=== PATIENT | male | born 1945 | race Caucasian/White ===

== ENCOUNTER 2021-06-12 14:05 | Inpatient (IN) | payer MEDICARE, OTHER ==
[~2021-06-12] VITALS: Ht 175 cm; Wt 64.4 kg
[~2021-06-12 14:05] MED LIST: ACET325T38 PO; ASPI325T32 PO; ATOR80TA2 PO; GLIP10TA13 PO; INSU100V6 SQ; LISI10TA2 PO; METF-380 PO; UBID10CA8 PO
[2021-06-12 14:42] LABS: BASOPHILS % (AUTO) 0 % (0-10); EOSINOPHILS % (AUTO) 0 % (0-10); HEMATOCRIT 41 % (40-54); HEMOGLOBIN 13.9 g/dL (13.3-17.7); LYMPHOCYTES # (AUTO) 0.8 10^3/uL (1.0-4.0); LYMPHOCYTES % (AUTO) 22 % (12-44); MEAN CORPUSCULAR HEMOGLOBIN 31 pg (25-34); MEAN CORPUSCULAR HGB CONC 34 g/dL (32-36); MEAN CORPUSCULAR VOLUME 91 fL (80-99); MEAN PLATELET VOLUME 9.7 fL (9.0-12.2); MONOCYTES # (AUTO) 0.3 10^3/uL (0.0-1.0); MONOCYTES % (AUTO) 7 % (0-12); NEUTROPHILS # (AUTO) 2.6 10^3/uL (1.8-7.8); NEUTROPHILS % (AUTO) 71 % (42-75); PLATELET COUNT 183 10^3/uL (130-400); WHITE BLOOD COUNT 3.6 10^3/uL (4.3-11.0)
[2021-06-12] MEDS ORDERED: ACETAMINOPHEN 500 MG TAB (TYLENOL) PO PRN (14:45)
[2021-06-12] MEDS ORDERED: PIPERACILLIN SODIUM/TAZOBACTAM 4.5 GM in NS (IVPB) 100 ML IV ONE (14:45)
[2021-06-12 14:47] LABS: ALBUMIN 3.4 GM/DL (3.2-4.5); POTASSIUM 4.3 MMOL/L (3.6-5.0)
[2021-06-12 14:48] LABS: CALCIUM 8.8 MG/DL (8.5-10.1); INR 0.9 (0.8-1.4); PROTHROMBIN TIME PATIENT 12.3 SEC (12.2-14.7)
[2021-06-12 14:49] LABS: TOTAL PROTEIN 7.5 GM/DL (6.4-8.2)
[2021-06-12 14:51] LABS: BILIRUBIN,TOTAL 0.6 MG/DL (0.1-1.0)
[2021-06-12 14:53] LABS: CREATININE SERUM 1.78 MG/DL (0.60-1.30)
--- NOTE | 2021-06-12 14:59 | Diagnostic Imaging Report ---
INDICATION: Sepsis, fever. COMPARISON: None available. TECHNIQUE: Single view chest dated 06/12/2021. FINDINGS: The cardiac silhouette is within normal limits in size. No significant pulmonary vascular congestion. The lungs are clear of focal pulmonary opacity. Calcifications within the aortic arch. No pleural effusion. No pneumothorax. No acute osseous abnormality. IMPRESSION: No acute cardiopulmonary abnormality. Dictated by: Dictated on workstation # [id number]
--- NOTE | 2021-06-12 15:07 | ED Cough/URI ---
General Chief Complaint: Fever-Adult/Adol Stated Complaint: WEAKNESS Nursing Triage Note: PT ARRIVED PER [facility], PT IS LETHARGIC, WEARING O2@2L NORMAL. HAS TEMP 101.7AX. FAMILY STATES WEAK NO APPETITE. WAS SEEN IN [facility] LAST WEEK AND GIVEN MACROBID FOR UTI. Source: patient Exam Limitations: no limitations (ERIBERTO LALA APRN) History of Present Illness Date Seen by Provider: Jun 12, 2021 Time Seen by Provider: 15:06 Initial Comments ER by daughter with reports of general weakness for 1 week was seen at [facility] 2 days ago and given Macrobid and discharged home. He is terribly weak. He did have a fever on arrival here. They state he would be full CODE STATUS. Timing/Duration: constant Severity/Quality: moderate Associated Symptoms: denies symptoms (ERIBERTO LALA APRN) Allergies and Home Medications Allergies Uncoded Allergies: NKMA (Adverse Reaction, Intermediate, 12/11/14) Home Medications Acetaminophen 325 Mg Tablet, 650 MG PO Q4H PRN for HEADACHE, (Reported) Aspirin 325 Mg Tablet.dr, 325 MG PO DAILY, (Reported) Atorvastatin Calcium 80 Mg Tablet, 80 MG PO DAILY, (Reported) Glipizide 10 Mg Tablet, 1 EACH PO BID, (Reported) Insulin Glargine,Hum.rec.anlog 100 Unit/1 Ml Vial, 12 UNIT SQ DAILY, (Reported) Lisinopril 10 Mg Tablet, 10 MG PO DAILY, (Reported) Metformin Hcl 1,000 Mg Tablet, 1 EACH PO BID, (Reported) Ubidecarenone 10 Mg Capsule, 10 MG PO DAILY, (Reported) Patient Home Medication List Home Medication List Reviewed: Yes (ERIBERTO LALA APRN) Review of Systems Review of Systems Constitutional: see HPI EENTM: see HPI Respiratory: no symptoms reported Cardiovascular: no symptoms reported Genitourinary: no symptoms reported Musculoskeletal: no symptoms reported Skin: no symptoms reported Psychiatric/Neurological: No Symptoms Reported Hematologic/Lymphatic: No Symptoms Reported Immunological/Allergic: no symptoms reported (ERIBERTO LALA APRN) Past Xagyqtg-Tcdwkc-Idkkln Hx Patient Social History Tobacco Use?: No Tobacco type used: Cigarettes Smoking Status: Former Smoker Substance use?: No Alcohol Use?: No Pt feels they are or have been: No (ERIBERTO LALA APRN) Immunizations Up To Date Tetanus Booster (TDap): More than 5yrs PED Vaccines UTD: No (ERIBERTO LALA APRN) Past Medical History Surgery/Hospitalization HX: WAS SEEN IN [facility] ED PAST WEEK Orthopedic, Tonsillectomy Reproductive Disorders: No Sexually Transmitted Disease: No HIV/AIDS: No Diabetes, Insulin dep Loss of Vision: Bilateral Hearing Impairment: Hard of Hearing Adverse Reaction/Blood Tranf: No (ERIBERTO LALA APRN) Family Medical History Patient reports no known family medical history. Physical Exam Vital Signs - First Documented 06/12/21 14:05 Temp 38.8 Pulse 122 Resp 20 B/P (MAP) 173/92 (119) Pulse Ox 93 O2 Delivery Nasal Cannula O2 Flow Rate 2.00 (JOY SWAN MD) Capillary Refill : Less Than 3 Seconds (ERIBERTO LALA APRN) Height: 5'8.00" Weight: 192lbs. oz. 87.476777rt; 20.00 BMI Method: General Appearance: WD/WN, no apparent distress, thin Eyes: Bilateral Eye Normal Inspection, Bilateral Eye PERRL, Bilateral Eye EOMI Neck: non-tender, full range of motion Respiratory: normal breath sounds, no respiratory distress, no accessory muscle use Gastrointestinal: normal bowel sounds, non tender Extremities: normal range of motion, non-tender Neurologic/Psychiatric: alert, normal mood/affect, oriented x 3 Skin: normal color, warm/dry (ERIBERTO LALA APRN) Focused Exam Lactate Level 06/12/21 14:10: Lactic Acid Level 1.54 (JOY SWAN MD) Lactic Acid Level Laboratory Tests Test 06/12/21 14:10 Lactic Acid Level 1.54 MMOL/L (0.50-2.00) (JOY SWAN MD) Progress/Results/Core Measures Suspected Sepsis SIRS Temperature: Pulse: 122 Respiratory Rate: 20 Laboratory Tests 06/12/21 14:10: White Blood Count 3.6L Blood Pressure 173 /92 Mean: 119 06/12/21 14:10: Lactic Acid Level 1.54 Laboratory Tests 06/12/21 14:10: Creatinine 1.78H, INR Comment 0.9, Platelet Count 183, Total Bilirubin 0.6 (ERIBERTO LALA APRN) Results/Orders Lab Results Laboratory Tests Test 06/12/21 14:10 06/12/21 14:28 06/12/21 15:09 Range/Units White Blood Count 3.6 L 4.3-11.0 10^3/uL Red Blood Count 4.46 4.30-5.52 10^6/uL Hemoglobin 13.9 13.3-17.7 g/dL Hematocrit 41 40-54 % Mean Corpuscular Volume 91 80-99 fL Mean Corpuscular Hemoglobin 31 25-34 pg Mean Corpuscular Hemoglobin Concent 34 32-36 g/dL Red Cell Distribution Width 12.7 10.0-14.5 % Platelet Count 183 130-400 10^3/uL Mean Platelet Volume 9.7 9.0-12.2 fL Immature Granulocyte % (Auto) 0 % Neutrophils (%) (Auto) 71 42-75 % Lymphocytes (%) (Auto) 22 12-44 % Monocytes (%) (Auto) 7 0-12 % Eosinophils (%) (Auto) 0 0-10 % Basophils (%) (Auto) 0 0-10 % Neutrophils # (Auto) 2.6 1.8-7.8 10^3/uL Lymphocytes # (Auto) 0.8 L 1.0-4.0 10^3/uL Monocytes # (Auto) 0.3 0.0-1.0 10^3/uL Eosinophils # (Auto) 0.0 0.0-0.3 10^3/uL Basophils # (Auto) 0.0 0.0-0.1 10^3/uL Immature Granulocyte # (Auto) 0.0 0.0-0.1 10^3/uL Prothrombin Time 12.3 12.2-14.7 SEC INR Comment 0.9 0.8-1.4 Activated Partial Thromboplast Time 32 24-35 SEC Sodium Level 132 L 135-145 MMOL/L Potassium Level 4.3 3.6-5.0 MMOL/L Chloride Level 99 98-107 MMOL/L Carbon Dioxide Level 22 21-32 MMOL/L Anion Gap 11 5-14 MMOL/L Blood Urea Nitrogen 28 H 7-18 MG/DL Creatinine 1.78 H 0.60-1.30 MG/DL Estimat Glomerular Filtration Rate 37 BUN/Creatinine Ratio 16 Glucose Level 396 H 70-105 MG/DL Lactic Acid Level 1.54 0.50-2.00 MMOL/L Calcium Level 8.8 8.5-10.1 MG/DL Corrected Calcium 9.3 8.5-10.1 MG/DL Total Bilirubin 0.6 0.1-1.0 MG/DL Aspartate Amino Transf (AST/SGOT) 37 H 5-34 U/L Alanine Aminotransferase (ALT/SGPT) 29 0-55 U/L Alkaline Phosphatase 78 40-136 U/L Total Protein 7.5 6.4-8.2 GM/DL Albumin 3.4 3.2-4.5 GM/DL Urine Color YELLOW Urine Clarity SL CLOUDY Urine pH 5.5 5-9 Urine Specific [place] 1.025 H 1.016-1.022 Urine Protein 2+ H NEGATIVE Urine Glucose (UA) 3+ H NEGATIVE Urine Ketones TRACE H NEGATIVE Urine Nitrite NEGATIVE NEGATIVE Urine Bilirubin NEGATIVE NEGATIVE Urine Urobilinogen 0.2 < = 1.0 MG/DL Urine Leukocyte Esterase NEGATIVE NEGATIVE Urine RBC (Auto) 1+ H NEGATIVE Urine RBC RARE /HPF Urine WBC 10-25 H /HPF Urine Squamous Epithelial Cells 0-2 /HPF Urine Crystals NONE /LPF Urine Bacteria LARGE H /HPF Urine Casts NONE /LPF Urine Mucus SMALL H /LPF Urine Culture Indicated CULTURE PENDING SARS-CoV-2 RNA (RT-PCR) Detected H Not Detecte (JOY SWAN MD) Medications Given in ED Current Medications Medications Dose Ordered Sig/Shonda Route Start Time Stop Time Status Last Admin Dose Admin Acetaminophen 1,000 mg ONCE PRN PO 06/12/21 14:45 06/12/21 15:24 DC 06/12/21 15:23 1,000 MG Piperacillin Sod/ Tazobactam Sod 4.5 gm/Sodium Chloride 100 ml @ 200 mls/hr ONCE ONCE IV 06/12/21 14:45 06/12/21 15:14 DC 06/12/21 15:24 200 MLS/HR (JOY SWAN MD) Vital Signs/I&O 06/12/21 06/12/21 14:05 14:05 Temp 38.8 Pulse 122 Resp 20 B/P (MAP) 173/92 (119) Pulse Ox 93 93 O2 Delivery Nasal Cannula Nasal Cannula O2 Flow Rate 2.00 2.00 (JOY SWAN MD) Vital Signs/I&O Capillary Refill : Less Than 3 Seconds (ERIBERTO LALA APRN) Blood Pressure Mean: 119 Departure Impression Primary Impression: COVID-19 Disposition: 09 ADMITTED INPATIENT Condition: Stable Admissions Decision to Admit Reason: Admit from ER (General) Decision to Admit/Date: Jun 12, 2021 Time/Decision to Admit Time: 16:12 (ERIBERTO LALA APRN) ATTENDING PHYSICIAN NOTE: I was physically present as attending physician in the emergency department during the care of this patient, but I was not directly involved in the decision making or delivery of care for this patient. (JOY SWAN MD) EIRBERTO LALA APRN Jun 12, 2021 15:07 JOY SWAN MD Jun 12, 2021 19:27
[2021-06-12 15:30] LABS: BILIRUBIN,URINE NEGATIVE (NEGATIVE); COLOR,URINE YELLOW; GLUCOSE, URINE (UA) 3+ (NEGATIVE); KETONES,URINE TRACE (NEGATIVE); LEUKOCYTE ESTERASE ,URINE NEGATIVE (NEGATIVE); NITRITE,URINE NEGATIVE (NEGATIVE); PH,URINE 5.5 (5-9); PROTEIN,URINE 2+ (NEGATIVE)
[2021-06-12 15:40] LABS: CLARITY,URINE SL CLOUDY
[2021-06-12 15:41] LABS: BACTERIA,URINE LARGE /HPF; RBC,URINE RARE /HPF; SQUAMOUS EPITHELIAL CELL,UR 0-2 /HPF
--- NOTE | 2021-06-12 16:22 | History & Physical-Hospitalist ---
History of Present Illness HPI/Chief Complaint Pt is a 76yoCM with a IDDMII, HLD who presented to the ER due to fever and weakness. He is unable to give me any history. He is awake but mostly nods his head and I am unsure if this is appropriate. All history is obtained from the records. Daughter reported tot he ER that he was weak for the past week and seen in the [facility] 2 days ago and diagnosed with a UTI and DCed home with macrobid. He continued to fever and was brought here for reevaluation where he was found to be hypoxic and COVID+. He is unvaccinated per his daughters report. He is being admitted for further care. Source: patient Date Seen 06/12/21 Time Seen by a Provider: 16:17 Attending Physician Chichi Palmer PCP Referring Physician Date of Admission Home Medications & Allergies Home Medications Reviewed patient Home Medication Reconciliation performed by pharmacy medication reconciliations centrifugal chiller technician and/or nursing. Patients Allergies have been reviewed. Allergies Allergies Uncoded Allergies NKMA ( Adverse Reaction, Intermediate, 12/11/14) Past Ynmsnzr-Agwvof-Osdszm Hx Patient Social History Employed/Student: retired Tobacco Use?: No Tobacco type used: Cigarettes Smoking Status: Former Smoker Substance use?: No Alcohol Use?: No Pt feels they are or have been: No Immunizations Up To Date Date of Influenza Vaccine: Dec 10, 2014 Hepatitis B: No PED Vaccines UTD: No Date of Pneumonia Vaccine: Dec 10, 2014 Current Status Advance Directives: No Communicates: Verbally Primary Language: [place] Preferred Spoken Language: [place] Is interpretation needed?: No Implanted or Applied Medical D: None Past Medical History Surgeries: Orthopedic, Tonsillectomy High Cholesterol Sexually Transmitted Disease: No HIV/AIDS: No Diabetes, Insulin dep Loss of Vision: Bilateral Hearing Impairment: Hard of Hearing Adverse Reaction/Blood Tranf: No Family Medical History Reviewed Nursing Family Hx (unable to give history) Patient reports no known family medical history. Review of Systems ROS-Unable to Obtain: limited by patient clinical condition Constitutional: fever, malaise, weakness Genitourinary: other (recent UTI) Physical Exam Physical Exam Vital Signs Vital Signs - First Documented 06/12/21 06/13/21 14:05 03:47 Temp 38.8 Pulse 122 Resp 20 B/P (MAP) 173/92 (119) Pulse Ox 93 O2 Delivery Nasal Cannula O2 Flow Rate 2.00 FiO2 32 Capillary Refill : Less Than 3 Seconds Height, Weight, BMI Height: 5'8.00" Weight: 192lbs. oz. 87.845118qg; 20.00 BMI Method: General Appearance: Chronically ill, Thin, Other (ill appearing) HEENT: PERRL/EOMI, Moist Mucous Membranes; No Scleral Icterus (L), No Scleral Icterus (R) Neck: Normal Inspection, Supple Respiratory: No Accessory Muscle Use, No Respiratory Distress; No Crackles; Decreased Breath Sounds Cardiovascular: Regular Rate, Rhythm, No Murmur Gastrointestinal: Normal Bowel Sounds, Non Tender, Soft Genital/Rectal: Other (claderon in place) Neurologic/Psychiatric: Alert, Disoriented Results Results/Procedures Labs Laboratory Tests 06/12/21 14:10 06/13/21 04:00 06/14/21 03:44 Patient resulted labs reviewed. Imaging: Reviewed Imaging Report Imaging [facility] [place], [place] NAME: DAMIEN BRADY [facility] REC#: [id number] PT STATUS: REG ER : 1945 PHYSICIAN: ERIBERTO LALA APRN ADMIT DATE: 06/12/21/ER Signed Date of Exam:06/12/21 CHEST 1 VIEW, AP/PA ONLY INDICATION: Sepsis, fever. COMPARISON: None available. TECHNIQUE: Single view chest dated 06/12/2021. FINDINGS: The cardiac silhouette is within normal limits in size. No significant pulmonary vascular congestion. The lungs are clear of focal pulmonary opacity. Calcifications within the aortic arch. No pleural effusion. No pneumothorax. No acute osseous abnormality. IMPRESSION: No acute cardiopulmonary abnormality. Dictated by: Dictated on workstation # [id number] Dict: 06/12/21 1454 Trans: 06/12/21 1606 [id number] Interpreted by: UMA VELEZ MD Electronically signed by: UMA VELEZ MD 06/12/21 1606 Assessment/Plan Admission Diagnosis Acute hypoxic respiratory failure due to COVID19 Admission Status: Inpatient Order (span 2 midnights) Reason for Inpatient Admission: see below Assessment and Plan Acute hypoxic respiratory failure due to COVID19 Decadron Remdesivir Titrate oxygen to keep sats >90% Roughly 1 week of symptoms per family MAT protocol IS UTI Continue on IV abx Await c/s IDDMII Continue home meds when med rec done DVT ppx: lovenox Diagnosis/Problems Diagnosis/Problems (1) Acute respiratory failure (2) HLD (hyperlipidemia) (3) Insulin dependent diabetes mellitus (4) COVID-19 Status: Acute CHICHI PALMER MD Jun 12, 2021 16:22
[2021-06-12] MEDS ORDERED: ONDANSETRON 4 MG/2 ML (SDV) Z0FRAN IVP PRN ×2 (17:00)
[2021-06-12] MEDS ORDERED: ACETAMINOPHEN 325 MG TABLET PO PRN (17:00)
[2021-06-12] MEDS ORDERED: REMDESIVIR 200 MG/NS 250 ML IVPB IV NR ×2 (17:00)
[2021-06-12] MEDS ORDERED: ACETAMINOPHEN 325 MG SUPP (TYLENOL) PR PRN (17:00)
[2021-06-12] MEDS ORDERED: inSUlin ASPART (NovoLOG) 1 UNIT/0.01 ML (CHARGE PER UNIT) SC SCH (17:15)
[2021-06-12] MEDS: ENOXAPARIN 40 MG/0.4 ML (LOVENOX) SYR SC SCH (18:03)
[2021-06-12 18:38] LABS: ABG BASE EXCESS -3.5 MMOL/L (-2.5-2.5); ABG OXYGEN SATURATION 94 % (94-100); ABG PCO2 36 MMHG (35-45); ABG PH 7.38 (7.37-7.43); ABG PO2 62 MMHG (79-93); ABG TCO2 22.1 MMOL/L (21.0-31.0); ALLENS TEST YES-POS; INSPIRED O2 2L; PATIENT TEMP 36.4; VENTILATOR NO
[2021-06-12 19:00] VITALS: BP 131/75
[2021-06-12 20:00] VITALS: BP 127/71
[2021-06-12] MEDS: LACTATED RINGERS 1,000 ML IV SCH (20:12)
[2021-06-12 20:15] VITALS: BP 127/71
[2021-06-12] MEDS: inSUlin ASPART (NovoLOG) 1 UNIT/0.01 ML (CHARGE PER UNIT) SC SCH (20:26)
[2021-06-12 21:00] VITALS: BP 138/80
--- NOTE | 2021-06-12 21:50 | Tele-ICU Progress Note ---
Progress Note 76M w/IDDM, HLD, unvaccinated admitted with COVID, hypoxia. Initiated on remdesivir, decadron, empiric abx. - COVID: continue current management. Currently on 2L NC, monitor for decomponsation. - hyperglycemia: insulin sliding scale, has slowly improved from 400 to 300 throughout the day. Will continue to monitor, if not <200 by AM will increase. - ASHVIN vs CKD: presumed ASHVIN secondary to infection. Baseline unknown, only prior draw was 2014 with creatinine 0.8, now 1.78, Will monitor. Avoid nephrotoxins, hypotension. Focused Exam Lactate Level 06/12/21 14:10: Lactic Acid Level 1.54 Height, Weight, BMI Height: 5'8.00" Weight: 192lbs. oz. 87.663647ng; 20.00 BMI Method: CHRIS MCWILLIAMS MD Jun 12, 2021 21:50
[2021-06-12 22:00] VITALS: BP 129/76
[2021-06-12 23:00] VITALS: BP 128/72
[2021-06-13] VITALS (17 sets, daily range): BP systolic 120–150; BP diastolic 60–87
[2021-06-13] MEDS: LACTATED RINGERS 1,000 ML IV SCH ×3 (03:29→15:53)
[2021-06-13] MEDS ORDERED: RT-ALBUTEROL HFA 8.5 GM INHALER IH PRN (04:00)
[2021-06-13 04:27] LABS: BASOPHILS % (AUTO) 0 % (0-10); EOSINOPHILS % (AUTO) 0 % (0-10); HEMATOCRIT 38 % (40-54); LYMPHOCYTES # (AUTO) 1.2 10^3/uL (1.0-4.0); LYMPHOCYTES % (AUTO) 19 % (12-44); MEAN CORPUSCULAR HEMOGLOBIN 31 pg (25-34); MEAN CORPUSCULAR HGB CONC 35 g/dL (32-36); MEAN CORPUSCULAR VOLUME 90 fL (80-99); MEAN PLATELET VOLUME 9.9 fL (9.0-12.2); MONOCYTES # (AUTO) 0.3 10^3/uL (0.0-1.0); MONOCYTES % (AUTO) 5 % (0-12); NEUTROPHILS # (AUTO) 4.7 10^3/uL (1.8-7.8); NEUTROPHILS % (AUTO) 76 % (42-75); PLATELET COUNT 181 10^3/uL (130-400); WHITE BLOOD COUNT 6.2 10^3/uL (4.3-11.0)
[2021-06-13 04:40] LABS: POTASSIUM 3.9 MMOL/L (3.6-5.0)
[2021-06-13 04:41] LABS: CALCIUM 8.7 MG/DL (8.5-10.1)
[2021-06-13 04:45] LABS: PHOSPHORUS 2.2 MG/DL (2.3-4.7)
[2021-06-13 04:46] LABS: CREATININE SERUM 1.91 MG/DL (0.60-1.30)
[2021-06-13 04:47] LABS: MAGNESIUM 1.7 MG/DL (1.6-2.4)
[2021-06-13] MEDS: inSUlin ASPART (NovoLOG) 1 UNIT/0.01 ML (CHARGE PER UNIT) SC SCH ×4 (05:10→21:16)
[2021-06-13] MEDS ORDERED: POTASSIUM CL 10MEQ/50ML IVPB 50 ML IV SCH (06:00)
[2021-06-13] MEDS ORDERED: MAGNESIUM 1 GM/100 ML IVPB 100 ML IV SCH (06:00)
[2021-06-13] MEDS ORDERED: KCL 20 MEQ TAB (K-DUR) PO SCH (06:00)
[2021-06-13] MEDS: dexAMETHasone 6 MG TAB (DECADRON) PO SCH (08:15)
--- NOTE | 2021-06-13 09:04 | Tele-ICU Progress Note ---
Subjective Date Seen by a Provider: Jun 13, 2021 Time Seen by a Provider: 09:04 Sepsis Event Evaluation Height, Weight, BMI Height: 5'8.00" Weight: 192lbs. oz. 87.486375lr; 20.00 BMI Method: Focused Exam Lactate Level 06/12/21 14:10: Lactic Acid Level 1.54 Exam Exam Patient acknowledged, consented, and participated in this virtual visit which was conducted using real time audio/video Vital Signs Date Time Temp Pulse Resp B/P (MAP) Pulse Ox O2 Delivery O2 Flow Rate FiO2 06/13/21 08:15 94 Nasal Cannula 2.00 06/13/21 08:00 105 27 142/73 (94) 94 Nasal Cannula 2.00 06/13/21 07:57 37.0 06/13/21 07:00 111 38 150/87 (113) 95 Nasal Cannula 2.00 06/13/21 07:00 108 06/13/21 06:00 111 22 139/83 (101) 93 Nasal Cannula 2.00 06/13/21 05:00 112 30 135/82 (99) 95 Nasal Cannula 2.00 06/13/21 04:00 113 22 138/83 (101) 95 Nasal Cannula 2.00 06/13/21 04:00 95 Nasal Cannula 2.00 06/13/21 03:47 37.1 109 95 32 06/13/21 03:30 37.1 06/13/21 03:00 112 20 135/70 (91) 95 Nasal Cannula 2.00 06/13/21 02:00 112 34 132/69 (90) 95 Nasal Cannula 2.00 06/13/21 01:00 109 33 132/68 (89) 95 Nasal Cannula 2.00 06/13/21 01:00 109 06/13/21 00:07 37.4 109 22 121/74 (90) 95 Nasal Cannula 2.00 06/13/21 00:00 95 Nasal Cannula 2.00 06/13/21 00:00 110 32 126/70 (88) 95 Nasal Cannula 2.00 06/12/21 23:00 111 25 128/72 (90) 94 Nasal Cannula 2.00 06/12/21 22:00 112 25 129/76 (93) 95 Nasal Cannula 2.00 06/12/21 21:00 111 27 138/80 (99) 95 Nasal Cannula 2.00 06/12/21 21:00 95 Nasal Cannula 2.00 06/12/21 20:25 37.5 06/12/21 20:19 105 06/12/21 20:15 105 26 127/71 (89) 95 Nasal Cannula 2.00 06/12/21 20:00 105 26 127/71 (89) 95 Nasal Cannula 2.00 06/12/21 19:00 107 26 131/75 (93) 92 Nasal Cannula 2.00 06/12/21 18:30 Nasal Cannula 6.00 06/12/21 16:48 112 06/12/21 16:40 92 Nasal Cannula 2.00 06/12/21 16:40 37.2 Nasal Cannula 2.00 06/12/21 16:13 117 20 154/82 (119) 95 Nasal Cannula 2.00 06/12/21 14:05 38.8 122 20 173/92 (119) 93 Nasal Cannula 2.00 06/12/21 14:05 93 Nasal Cannula 2.00 I & O 06/13/21 06:59 Intake Total 1250 ml Output Total 450 ml Balance 800 ml Height & Weight Height: 5'8.00" Weight: 192lbs. oz. 87.893493ie; 20.00 BMI Method: General Appearance: Chronically ill, Thin, Other (ill appearing) HEENT: PERRL/EOMI, Moist Mucous Membranes; No Scleral Icterus (L), No Scleral Icterus (R) Neck: Normal Inspection, Supple Respiratory: No Accessory Muscle Use, No Respiratory Distress; No Crackles; Decreased Breath Sounds Cardiovascular: Regular Rate, Rhythm, No Murmur Capillary Refill: Less Than 3 Seconds Gastrointestinal: normal bowel sounds, non tender Neurologic/Psychiatric: Alert, Disoriented Results Lab Laboratory Tests 06/12/21 14:10 06/13/21 04:00 Assessment/Plan Assessment/Plan (Tele-ICU Physician , Progress Note ) Available chart/ vitals / labs / Images reviewed Video assessment done using teleICU camera, rest of exam as per RN Discussed with RN , EXAM PER RN Events overnight : Afebrile I/O = pos Drips: na 100 Pressors: , hemodynamically stable Consultants: Hospital course: A/P COVID PNA - 2 L o2 , steroids , remdesivir UTI - ABC , await cx ASHVIN - worsenign despite hydration - increase IVF - US renal Lines : peripf (Central Line Necessity Reviewed) Diaz: + VTE Prophylaxis: lovenox Stress Ulcer Prophylaxis: Po Plans in collaboration with bedside consultants and IM MDs. Discussed with RN to reach out if any questions or concerns A total of 20 minutes of critical care time was devoted to this patient today, required to treat and/or prevent further deterioration of critical care condition ( as above) . IVAN RODRIGUEZ MD Jun 13, 2021 09:04
[2021-06-13] MEDS ORDERED: PIPERACILLIN/TAZO 4.5 GM/NS 100 ML IV ONE ×2 (09:30)
--- NOTE | 2021-06-13 10:29 | Progress Note - Hospitalist ---
Subjective HPI/CC On Admission Date Seen by Provider: Jun 13, 2021 Time Seen by Provider: 10:25 Pt is a 76yoCM with a IDDMII, HLD who presented to the ER due to fever and weakness. He is unable to give me any history. He is awake but mostly nods his head and I am unsure if this is appropriate. All history is obtained from the records. Daughter reported tot he ER that he was weak for the past week and seen in the [facility] 2 days ago and diagnosed with a UTI and DCed home with macrobid. He continued to fever and was brought here for reevaluation where he was found to be hypoxic and COVID+. He is unvaccinated per his daughters report. He is being admitted for further care. Subjective/Events-last exam Pt more alert today. No complaints but somewaht drowsy. Unsure of his baseline. I attempted to call family to clarify this at both numbers in the chart and both are disconnected. Focused Exam Lactate Level 06/12/21 14:10: Lactic Acid Level 1.54 Objective Exam Vital Signs Vital Signs Date Time Temp Pulse Resp B/P (MAP) Pulse Ox O2 Delivery O2 Flow Rate FiO2 06/14/21 11:40 36.0 88 20 121/63 (82) 93 Nasal Cannula 4.00 06/13/21 03:47 32 Capillary Refill : Less Than 3 Seconds General Appearance: No Apparent Distress, Chronically ill, Thin Respiratory: Decreased Breath Sounds; No Wheezing; Other (on 2lpm) Cardiovascular: Regular Rate, Rhythm, No Murmur Gastrointestinal: Normal Bowel Sounds, Non Tender, Soft Extremity: No Calf Tenderness, No Pedal Edema Neurologic/Psychiatric: Alert, Other (nods head but otherwise unable to participate much in conversation) Results/Procedures Lab Laboratory Tests 06/14/21 03:44 Patient resulted labs reviewed. Imaging: Reviewed Imaging Report Assessment/Plan Assessment and Plan Assess & Plan/Chief Complaint Acute hypoxic respiratory failure due to COVID19 Decadron Remdesivir was planned but creatinine clearance is less than 30 so not appropriate Titrate oxygen to keep sats >90% Roughly 1 week of symptoms per family report to ER MAT protocol IS UTI Continue on IV abx Await c/s IDDMII Continue home meds when med rec done DVT ppx: lovenox Diagnosis/Problems Diagnosis/Problems (1) Acute respiratory failure (2) HLD (hyperlipidemia) (3) Insulin dependent diabetes mellitus (4) COVID-19 Status: Acute CHICHI AGUILA MD Jun 13, 2021 10:29
--- NOTE | 2021-06-13 12:07 | Diagnostic Imaging Report ---
PROCEDURE: US Renal/Bladder. TECHNIQUE: Multiple real-time grayscale images were obtained over the kidneys in various projections bilaterally. INDICATION: Acute kidney injury. Evaluate for hydronephrosis. COMPARISON: None. FINDINGS: Right: The right kidney measures 11.2 cm in length. Renal cortical thickness and echogenicity are within normal limits. There is no evidence of calculi, solid focal mass or hydronephrosis. No perinephric fluid collections are identified. Left: The left kidney measures 9.9 cm in length. Renal cortical thickness and echogenicity are within normal limits. There is no evidence of calculi, solid focal mass or hydronephrosis. No perinephric fluid collections are identified. There is no abdominal ascites. Views of the pelvis demonstrate a decompressed urinary bladder with Diaz in place. IMPRESSION: 1. No acute renal abnormalities identified. No evidence of hydronephrosis. Dictated by: Dictated on workstation # [id number]
--- NOTE | 2021-06-13 14:12 | Occupational Therapy Eval ---
OT Evaluation-General/PLF Medical Diagnosis Admission Date Jun 12, 2021 at 16:10 Medical Diagnosis: COVID+ Onset Date: Jun 13, 2021 Therapy Diagnosis Therapy Diagnosis: weakness, decreased ADL status Height/Weight Height (Feet): 5 Height (Inches): 8.00 Weight (Pounds): 192 Precautions Precautions/Isolations: Airborne Isolation, Fall Prevention, Standard Precautions Referral Physician: Estela Referral Reason: Evaluation/Treatment Medical History Pertinent Medical History: DM Current History ED due to weakness/fever Social History Home: Single Level Current Living Status: Children (daughter) Entry Into Home: Stairs With Railing Steps Into Home: 3 ADL-Prior Level of Function SCALE: Activities may be completed with or without assistive devices. 1-Qdolazvcfv-gvdsein completes the activity by him/herself with no assistance from a helper. 5-Set-up or Clean-up Assistance-helper sets up or cleans up; patient completes activity. [place] assists only prior to or following the activity. 4-Supervision or Touching Assistance-helper provides verbal cues and/or touching/steadying and/or contact guard assistance as patient completes activity. Assistance may be provided throughout the activity or intermittently. 3-Partial/Moderate Assistance-helper does LESS THAN HALF the effort. [place] lifts, holds or supports trunk or limbs, but provides less than half the effort. 2-Substantial/Maximal Assistance-helper does MORE THAN HALF the effort. [place] lifts or holds trunk or limbs and provides more than half the effort. 6-Skennbzqr-tjaiij does ALL the effort. Patient does none of the effort to complete the activity. Or, the assistance of 2 or more helpers is required for the patient to complete the activity. If activity was not attempted, code reason: 7-Patient Refused. 9-Not Applicable-not attempted and the patient did not perform the activity before the current illness, exacerbation or injury. 10-Not Attempted due to Environmental Limitations-(lack of equipment, weather restraints, etc.). 88-Not Attempted due to Medical Conditions or Safety Concerns. ADL PLOF Comments Pt reports IND with ADLs and functional mobility using FWW at PLOF. Self Care: Independent Functional Cognition: Independent OT Current Status Subjective Pt laying in bed eating lunch, agreeable to OT tx. Mental Status/Objective Patient Orientation: Person, Confused Current Hand Dominance: Right Upper Extremity ROM Decreased, BUE AAROM to approx 90 degrees. Pt did not follow instructions to perform AROM. Upper Extremity Coordination decreased Upper Extremity Strength grossly 2/5 ADL-Treatment Eating (QC): 5 (set up assistance, assistance with contianers. ) On/Off Footwear (QC): 1 (total assist donning gripper socks.) Other Treatments Pt laying in bed, transferred supine to sit EOB. Pt attempted to don gripper socks, but required total assist from OT. Pt held sock in his hand, then asked OT what he was doing. Pt transferred from EOB to recliner, assist x2. Post tx, pt seated in recliner eating lunch, call light in reach and all needs met, chair alarm on. Pt requires max A for supine to sit and sit to stand. Pt very slumped posture due to weakness. Pt took a couple steps towards recliner but not able to take any more and had to be guided to recliner with max A. Education OT Patient Education: Correct positioning, Modified ADL techniques, Progress toward Goal/Update tx plan, Purpose of tx/functional activities, Rehab process Teaching Recipient: Patient Teaching Methods: Discussion Response to Teaching: Verbalize Understanding OT Fpc Goals Airline Mechanic Goals Time Frame: Jul 04, 2021 Eating (QC): 6 Oral Hygiene (QC): 6 Toileting Hygiene (QC): 5 Shower/Bathe Self (QC): 4 Upper Body Dressing (QC): 6 Lower Body Dressing (QC): 4 On/Off Footwear (QC): 4 Additional Goals: 1-Demonstrate ADL Tasks, 2-Verbalize Understanding, 3- ImproveStrength/Rafaela 1=Demonstrate adherence to instructed precautions during ADL tasks. 2=Patient will verbalize/demonstrate understanding of assistive devices/mo difications for ADL. 3=Patient will improve strength/tolerance for activity to enable patient to perform ADL's. OT Education/Plan Problem List/Assessment Assessment: Decreased Activ Tolerance, Decreased UE Strength, Dependent Transfers, Impaired Bed Mobility, Impaired Cognition, Impaired Funct Balance, Impaired I ADL's, Impaired Self-Care Skills Discharge Recommendations Plan/Recommendations: Continue POC Treatment Plan/Plan of Care Patient would benefit from OT for education, treatment and training to promote independence in ADL's, mobility, safety and/or upper extremity function for ADL's. Plan of Care: ADL Retraining, Functional Mobility, UE Funct Exercise/Act Treatment Duration: Jul 04, 2021 Frequency: 5 times per week Estimated Hrs Per Day: .25 hour per day Time/GCodes Start Time: 13:30 Stop Time: 13:54 Total Time Billed (hr/min): 24 Billed Treatment Time 1, EVM (10'), ADL (14') GELACIO COX OT Jun 13, 2021 14:12
--- NOTE | 2021-06-13 14:16 | Physical Therapy Evaluation ---
PT Evaluation-General Medical Diagnosis Admission Date Jun 12, 2021 at 16:10 Medical Diagnosis: covid 19, debility Onset Date: Jun 11, 2021 Therapy Diagnosis Therapy Diagnosis: impaired mobility, strength, endurance Height/Weight Height (Feet): 5 Height (Inches): 8.00 Weight (Pounds): 192 Precautions Precautions/Isolations: Airborne Isolation, Fall Prevention, Standard Precautions Referral Physician: Estela Reason for Referral: Evaluation/Treatment Medical History Additional Medical History Past Medical History Surgery/Hospitalization HX: WAS SEEN IN [facility] ED PAST WEEK Orthopedic, Tonsillectomy Reproductive Disorders: No Sexually Transmitted Disease: No HIV/AIDS: No Diabetes, Insulin dep Loss of Vision: Bilateral Hearing Impairment: Hard of Hearing Reviewed History: Yes Social History Home: Single Level Current Living Status: Other Family Entry Into Home: Stairs With Railing PT Steps Into Home: 3 Prior Prior Level of Function SCALE: Activities may be completed with or without assistive devices. 4-Obqfldksbw-milmdnp completes the activity by him/herself with no assistance from a helper. 5-Set-up or Clean-up Assistance-helper sets up or cleans up; patient completes activity. [place] assists only prior to or following the activity. 4-Supervision or Touching Assistance-helper provides verbal cues and/or touching/steadying and/or contact guard assistance as patient completes activity. Assistance may be provided throughout the activity or intermittently. 3-Partial/Moderate Assistance-helper does LESS THAN HALF the effort. [place] lifts, holds or supports trunk or limbs, but provides less than half the effort. 2-Substantial/Maximal Assistance-helper does MORE THAN HALF the effort. [place] lifts or holds trunk or limbs and provides more than half the effort. 6-Uhvzsxgex-zyyeax does ALL the effort. Patient does none of the effort to complete the activity. Or, the assistance of 2 or more helpers is required for the patient to complete the activity. If activity was not attempted, code reason: 7-Patient Refused. 9-Not Applicable-not attempted and the patient did not perform the activity before the current illness, exacerbation or injury. 10-Not Attempted due to Environmental Limitations-(lack of equipment, weather restraints, etc.). 88-Not Attempted due to Medical Conditions or Safety Concerns. Bed Mobility: 6 Transfers (B,C,W/C): 6 Gait: 6 Stairs: 6 Indoor Mobility (Ambulation): Independent Stairs: Independent Prior Devices Use: Walker Unsure of the accuracy of this info, patient seems to be confused and drowsy, has a hard time hearing therapist. PT Evaluation-Current Subjective Patient in bed pre tx, agrees to PT, has no complaints of pain. Pt/Family Goals none stated Objective Patient Orientation: Person, Confused Attachments: Oxygen, Diaz Catheter, IV ROM/Strength ROM Lower Extremities WNL Strength Lower Extremities 3/5 gross BLE Sensory Hearing: Impaired Transfers Roll Left to Right (QC): 6 Lying to Sitting/Side of Bed(Q: 2 Sit to Stand (QC): 2 Chair/Vpm-oe-Uslmy Xfer(QC): 2 Patient needed max assist for supine -> sit and sit to stand even from a slightly elevated bed. Patient had a very slumped posture but due to weakness and not being able to stand straight. After taking a couple of steps toward the recliner patient seemed to not be able to take any more and had to be guided to the recliner with max assist. Balance Sitting Static: Fair Sitting Dynamic: Fair Standing Static: Poor Standing Dynamic: Poor Assessment/Needs Patient in recliner post tx with nurse call, phone, tray, all needs met, chair alarm on. Patient has impaired mobility, strength, endurance. Max assist for t ransfers and supine to sit. Patient's O2 stayed in the low 90's during tx. Rehab Potential: Guarded PT Chief Writer Goals Chief Writer Goals PT Chief Writer Goals Time Frame: Jun 20, 2021 Roll Left & Right (QC): 6 Sit to Lying (QC): 5 Lying-Sitting on Side/Bed(QC): 5 Sit to Stand (QC): 3 Chair/Aza-st-Jlsks Xfer(QC): 3 Walk 10 feet (QC): 3 Walk 50ft with 2 Turns (QC): 3 PT Plan Problem List Problem List: Activity Tolerance, Functional Strength, Safety, Balance, Gait, Transfer, Bed Mobility, ROM Treatment/Plan Treatment Plan: Continue Plan of Care Treatment Plan: Bed Mobility, Education, Functional Activity Rafaela, Functional Strength, Gait, Safety, Therapeutic Exercise, Transfers Treatment Duration: Jun 20, 2021 Frequency: 6 times per week Estimated Hrs Per Day: .25 hour per day Patient and/or Family Agrees t: Yes Safety Risks/Education Patient Education: Transfer Techniques, Correct Positioning, Safety Issues Teaching Recipient: Patient Teaching Methods: Demonstration, Discussion Response to Teaching: Reinforcement Needed Discharge Recommendations Plan Patient will perform bed mobility and transfer training, balance and endurance training, functional strengthening, gait training, and education, to improve functional mobility and independence at home. Time/GCodes Time In: 1330 Time Out: 1354 Total Billed Treatment Time: 24 Total Billed Treatment 1 visit KATHRYN 10' FA 14' ROSENDO DOWNS PT Jun 13, 2021 14:16
[2021-06-13] MEDS ORDERED: NITR-65 PO (15:40)
[2021-06-13] MEDS ORDERED: CRAN400C PO (15:40)
[2021-06-13] MEDS ORDERED: CHOL10007 PO (15:40)
[2021-06-13] MEDS ORDERED: ASCO-262 PO (15:40)
[2021-06-13] MEDS: PIPERACILLIN/TAZOBACTAM (BULK) 4.5 GM in NS (IVPB) 100 ML IV SCH (15:47)
[2021-06-13] MEDS: ENOXAPARIN 40 MG/0.4 ML (LOVENOX) SYR SC SCH (15:48)
[2021-06-13] MEDS ORDERED: REMDESIVIR 100 MG/NS 250 ML IVPB IV SCH ×2 (17:00)
[2021-06-14] VITALS (7 sets, daily range): BP systolic 119–137; BP diastolic 63–72
[2021-06-14] MEDS: PIPERACILLIN/TAZOBACTAM (BULK) 4.5 GM in NS (IVPB) 100 ML IV SCH ×4 (00:33→23:47)
[2021-06-14 04:19] LABS: BASOPHILS % (AUTO) 0 % (0-10); EOSINOPHILS % (AUTO) 0 % (0-10); HEMATOCRIT 36 % (40-54); HEMOGLOBIN 12.7 g/dL (13.3-17.7); LYMPHOCYTES # (AUTO) 0.8 10^3/uL (1.0-4.0); LYMPHOCYTES % (AUTO) 17 % (12-44); MEAN CORPUSCULAR HEMOGLOBIN 31 pg (25-34); MEAN CORPUSCULAR HGB CONC 35 g/dL (32-36); MEAN CORPUSCULAR VOLUME 90 fL (80-99); MEAN PLATELET VOLUME 10.3 fL (9.0-12.2); MONOCYTES # (AUTO) 0.3 10^3/uL (0.0-1.0); MONOCYTES % (AUTO) 6 % (0-12); NEUTROPHILS # (AUTO) 3.5 10^3/uL (1.8-7.8); NEUTROPHILS % (AUTO) 76 % (42-75); PLATELET COUNT 184 10^3/uL (130-400); WHITE BLOOD COUNT 4.6 10^3/uL (4.3-11.0)
[2021-06-14] MEDS: LACTATED RINGERS 1,000 ML IV SCH ×4 (04:20→23:47)
[2021-06-14 04:40] LABS: POTASSIUM 4.1 MMOL/L (3.6-5.0)
[2021-06-14 04:41] LABS: CALCIUM 8.6 MG/DL (8.5-10.1)
[2021-06-14 04:45] LABS: CREATININE SERUM 2.26 MG/DL (0.60-1.30)
[2021-06-14] MEDS: inSUlin ASPART (NovoLOG) 1 UNIT/0.01 ML (CHARGE PER UNIT) SC SCH ×4 (06:24→22:31)
[2021-06-14] MEDS: dexAMETHasone 6 MG TAB (DECADRON) PO SCH (08:22)
--- NOTE | 2021-06-14 11:52 | Progress Note - Hospitalist ---
Subjective HPI/CC On Admission Date Seen by Provider: Jun 14, 2021 Time Seen by Provider: 11:49 Pt is a 76yoCM with a IDDMII, HLD who presented to the ER due to fever and weakness. He is unable to give me any history. He is awake but mostly nods his head and I am unsure if this is appropriate. All history is obtained from the records. Daughter reported tot he ER that he was weak for the past week and seen in the [place] ER 2 days ago and diagnosed with a UTI and DCed home with macrobid. He continued to fever and was brought here for reevaluation where he was found to be hypoxic and COVID+. He is unvaccinated per his daughters report. He is being admitted for further care. Subjective/Events-last exam Patient is clinically much improved. He is alert and eating out difficulty. He was able to tell me his name and where he is and that he is feeling better. Focused Exam Lactate Level 06/12/21 14:10: Lactic Acid Level 1.54 Objective Exam Vital Signs Vital Signs Date Time Temp Pulse Resp B/P (MAP) Pulse Ox O2 Delivery O2 Flow Rate FiO2 06/14/21 11:40 36.0 88 20 121/63 (82) 93 Nasal Cannula 4.00 06/13/21 03:47 32 Capillary Refill : Less Than 3 Seconds General Appearance: No Apparent Distress, Chronically ill, Thin Respiratory: No Accessory Muscle Use, Decreased Breath Sounds, Other (on 4lpm) Cardiovascular: Regular Rate, Rhythm, No Murmur Neurologic/Psychiatric: Alert, Other (oriented to person and place) Results/Procedures Lab Laboratory Tests 06/14/21 03:44 Patient resulted labs reviewed. Imaging: Reviewed Imaging Report Assessment/Plan Assessment and Plan Assess & Plan/Chief Complaint Acute hypoxic respiratory failure due to COVID19 Decadron Remdesivir was given x1 but creatinine clearance is now less than 30 so not appropriate Titrate oxygen to keep sats >90% MAT protocol IS PT UTI Continue on IV abx Urine culture with no growth despite large bacteria on UA, discussed with lab and they will reset plate They did recheck culture and it is growing yeast though NIDDMII Does not actually take insulin at home Increased to Sliding Scale C, hyperglycemia likely worsened by decadron DVT ppx: lovenox Diagnosis/Problems Diagnosis/Problems (1) Acute respiratory failure (2) HLD (hyperlipidemia) (3) Insulin dependent diabetes mellitus (4) COVID-19 Status: Acute CHICHI AGUILA MD Jun 14, 2021 11:52
--- NOTE | 2021-06-14 13:53 | Physical Therapy Progress Note ---
Therapy Progress Note PT treatment attempted. Patient sleeping in bed upon arrival. Patient did awaken but refused and then quickly returned to sleeping. DALE CAMPBELL PT Jun 14, 2021 13:53
[2021-06-14] MEDS: ENOXAPARIN 30 MG/0.3 ML (LOVENOX) SYR SC SCH (17:19)
[2021-06-15 04:54] VITALS: BP 114/70
[2021-06-15] MEDS: inSUlin ASPART (NovoLOG) 1 UNIT/0.01 ML (CHARGE PER UNIT) SC SCH ×4 (04:56→21:25)
[2021-06-15 05:48] LABS: BASOPHILS % (AUTO) 0 % (0-10); EOSINOPHILS % (AUTO) 0 % (0-10); HEMATOCRIT 35 % (40-54); HEMOGLOBIN 12.1 g/dL (13.3-17.7); LYMPHOCYTES # (AUTO) 0.8 10^3/uL (1.0-4.0); LYMPHOCYTES % (AUTO) 13 % (12-44); MEAN CORPUSCULAR HEMOGLOBIN 32 pg (25-34); MEAN CORPUSCULAR HGB CONC 35 g/dL (32-36); MEAN CORPUSCULAR VOLUME 91 fL (80-99); MEAN PLATELET VOLUME 10.1 fL (9.0-12.2); MONOCYTES # (AUTO) 0.3 10^3/uL (0.0-1.0); MONOCYTES % (AUTO) 4 % (0-12); NEUTROPHILS # (AUTO) 5.2 10^3/uL (1.8-7.8); NEUTROPHILS % (AUTO) 82 % (42-75); PLATELET COUNT 214 10^3/uL (130-400); WHITE BLOOD COUNT 6.4 10^3/uL (4.3-11.0)
[2021-06-15] MEDS: LACTATED RINGERS 1,000 ML IV SCH (05:56)
[2021-06-15 06:00] LABS: POTASSIUM 4.1 MMOL/L (3.6-5.0)
[2021-06-15 06:01] LABS: CALCIUM 8.6 MG/DL (8.5-10.1)
[2021-06-15 06:05] LABS: CREATININE SERUM 2.07 MG/DL (0.60-1.30)
[2021-06-15] MEDS: VITAMIN D3 25 MCG (1,000 UNITS) TABLET PO SCH (08:29)
[2021-06-15] MEDS: dexAMETHasone 6 MG TAB (DECADRON) PO SCH (08:29)
[2021-06-15] MEDS: PIPERACILLIN/TAZOBACTAM (BULK) 4.5 GM in NS (IVPB) 100 ML IV SCH (08:29)
[2021-06-15 08:40] VITALS: BP 139/72
[2021-06-15] MEDS ORDERED: NON-FORMULARY MEDICATION 1 EA EA (Cholecalciferol (Vitamin D3) (Vitamin D3) 25 MCG) PO SCH (09:00)
[2021-06-15 12:25] VITALS: BP 134/65
--- NOTE | 2021-06-15 12:38 | Progress Note - Hospitalist ---
Subjective HPI/CC On Admission Date Seen by Provider: Jun 15, 2021 Time Seen by Provider: 10:15 Pt is a 76yoCM with a IDDMII, HLD who presented to the ER due to fever and weakness. He is unable to give me any history. He is awake but mostly nods his head and I am unsure if this is appropriate. All history is obtained from the records. Daughter reported tot he ER that he was weak for the past week and seen in the [place] ER 2 days ago and diagnosed with a UTI and DCed home with macrobid. He continued to fever and was brought here for reevaluation where he was found to be hypoxic and COVID+. He is unvaccinated per his daughters report. He is being admitted for further care. Subjective/Events-last exam Pt sitting up in bed and eating breakfast. States feeling better today. No complaints. RN reports doing well. Focused Exam Lactate Level 06/12/21 14:10: Lactic Acid Level 1.54 Objective Exam Vital Signs Vital Signs Date Time Temp Pulse Resp B/P (MAP) Pulse Ox O2 Delivery O2 Flow Rate FiO2 06/15/21 12:25 36.1 83 22 134/65 (88) 95 Nasal Cannula 2.00 06/13/21 03:47 32 Capillary Refill : Less Than 3 Seconds General Appearance: No Apparent Distress, Chronically ill, Thin Respiratory: No Accessory Muscle Use; No Crackles; Decreased Breath Sounds; No Wheezing; Other (on 2lpm) Cardiovascular: Regular Rate, Rhythm, No Murmur Gastrointestinal: Normal Bowel Sounds, Non Tender, Soft Neurologic/Psychiatric: Alert, Oriented x3 Results/Procedures Lab Laboratory Tests 06/15/21 05:10 Patient resulted labs reviewed. Imaging: Reviewed Imaging Report Assessment/Plan Assessment and Plan Assess & Plan/Chief Complaint Acute hypoxic respiratory failure due to COVID19 Decadron Remdesivir was given x1 but creatinine clearance is now less than 30 so not appropriate Titrate oxygen to keep sats >90%, currently on 2lpm MAT protocol IS PT UTI Urine culture with no growth despite large bacteria on UA, discussed with lab and they will reset plate, reset is also negative for any growth Will DC IV abx and monitor off given UA was negative for leuk esterase and nitrates and just had bacteria NIDDMII Does not actually take insulin at home Increased to Sliding Scale C, hyperglycemia improved today DVT ppx: lovenox Diagnosis/Problems Diagnosis/Problems (1) Acute respiratory failure (2) HLD (hyperlipidemia) (3) Insulin dependent diabetes mellitus (4) COVID-19 Status: Acute CHICHI AGUILA MD Jun 15, 2021 12:38
[2021-06-15 16:37] VITALS: BP 149/71
[2021-06-15] MEDS: ENOXAPARIN 30 MG/0.3 ML (LOVENOX) SYR SC SCH (17:28)
[2021-06-15 20:03] VITALS: BP 136/76
[2021-06-16 00:23] VITALS: BP 134/72
[2021-06-16 03:59] VITALS: BP 136/75
[2021-06-16 05:40] LABS: BASOPHILS % (AUTO) 0 % (0-10); EOSINOPHILS % (AUTO) 0 % (0-10); HEMATOCRIT 35 % (40-54); HEMOGLOBIN 12.1 g/dL (13.3-17.7); LYMPHOCYTES # (AUTO) 1.1 10^3/uL (1.0-4.0); LYMPHOCYTES % (AUTO) 18 % (12-44); MEAN CORPUSCULAR HEMOGLOBIN 31 pg (25-34); MEAN CORPUSCULAR HGB CONC 34 g/dL (32-36); MEAN CORPUSCULAR VOLUME 91 fL (80-99); MEAN PLATELET VOLUME 9.9 fL (9.0-12.2); MONOCYTES # (AUTO) 0.3 10^3/uL (0.0-1.0); MONOCYTES % (AUTO) 5 % (0-12); NEUTROPHILS # (AUTO) 4.5 10^3/uL (1.8-7.8); NEUTROPHILS % (AUTO) 76 % (42-75); PLATELET COUNT 229 10^3/uL (130-400); WHITE BLOOD COUNT 5.9 10^3/uL (4.3-11.0)
[2021-06-16] MEDS: inSUlin ASPART (NovoLOG) 1 UNIT/0.01 ML (CHARGE PER UNIT) SC SCH ×4 (05:48→20:56)
[2021-06-16 06:02] LABS: POTASSIUM 4.1 MMOL/L (3.6-5.0)
[2021-06-16 06:03] LABS: CALCIUM 8.6 MG/DL (8.5-10.1)
[2021-06-16 08:00] VITALS: BP 158/72
[2021-06-16] MEDS: VITAMIN D3 25 MCG (1,000 UNITS) TABLET PO SCH (08:40)
[2021-06-16] MEDS: dexAMETHasone 6 MG TAB (DECADRON) PO SCH (08:40)
--- NOTE | 2021-06-16 11:14 | Physical Therapy Daily Note ---
PT Daily Note-Current Subjective Patient in bed pre tx, agrees to PT, has no complaints of pain. Appearance Patient in recliner post tx with nurse call, phone, tray, legs elevated, chair alarm on, nurse notified. Mental Status Patient Orientation: Person, Confused Attachments: Oxygen Transfers SCALE: Activities may be completed with or without assistive devices. 4-Giaxjcxtkd-flzwlts completes the activity by him/herself with no assistance from a helper. 5-Set-up or Clean-up Assistance-helper sets up or cleans up; patient completes activity. [place] assists only prior to or following the activity. 4-Supervision or Touching Assistance-helper provides verbal cues and/or touching/steadying and/or contact guard assistance as patient completes activity. Assistance may be provided throughout the activity or intermittently. 3-Partial/Moderate Assistance-helper does LESS THAN HALF the effort. [place] lifts, holds or supports trunk or limbs, but provides less than half the effort. 2-Substantial/Maximal Assistance-helper does MORE THAN HALF the effort. [place] lifts or holds trunk or limbs and provides more than half the effort. 8-Moupzdtuu-zfrnsx does ALL the effort. Patient does none of the effort to complete the activity. Or, the assistance of 2 or more helpers is required for the patient to complete the activity. If activity was not attempted, code reason: 7-Patient Refused. 9-Not Applicable-not attempted and the patient did not perform the activity before the current illness, exacerbation or injury. 10-Not Attempted due to Environmental Limitations-(lack of equipment, weather restraints, etc.). 88-Not Attempted due to Medical Conditions or Safety Concerns. Roll Left & Right (QC): 6 Lying to Sitting/Side of Bed(Q: 3 Sit to Stand (QC): 3 Chair/Hye-wl-Rzwim Xfer(QC): 3 Min assist for supine to sit, sit to stand, and transfer. Gait Training Distance: 3' Gait Persons Needed: 1 Gait Assistive Device: Handheld Assist Patient was able to take a few steps to the recliner from the bed with CELLOPHANE PRESS OPERATOR on the left side and using the right hand on the bed rail and then the armrest of the chair. Exercises Seated Therapy Exercises: Ankle pumps, Long arc quads Seated Reps: 20 Treatments bed mobility and transfers, ambulation, LE exercise Assessment Current Status: Fair Progress Patient still confused but has improved some. Still slumped posture even with cues to stand straight. PT Nursing Home Goals Sports Cartoonist Goals PT Sports Cartoonist Goals Time Frame: Jun 20, 2021 Roll Left & Right (QC): 6 Sit to Lying (QC): 5 Lying-Sitting on Side/Bed(QC): 5 Sit to Stand (QC): 3 Chair/Awj-gl-Futfa Xfer(QC): 3 Walk 10 feet (QC): 3 Walk 50ft with 2 Turns (QC): 3 PT Plan Problem List Problem List: Activity Tolerance, Functional Strength, Safety, Balance, Gait, Transfer, Bed Mobility, ROM Treatment/Plan Treatment Plan: Continue Plan of Care Treatment Plan: Bed Mobility, Education, Functional Activity Rafaela, Functional Strength, Gait, Safety, Therapeutic Exercise, Transfers Treatment Duration: Jun 20, 2021 Frequency: 6 times per week Estimated Hrs Per Day: .25 hour per day Patient and/or Family Agrees t: Yes Safety Risks/Education Patient Education: Gait Training, Transfer Techniques, Correct Positioning, Safety Issues Teaching Recipient: Patient Teaching Methods: Demonstration, Discussion Response to Teaching: Reinforcement Needed Time/GCodes Time In: 1038 Time Out: 1051 Total Billed Treatment Time: 13 Total Billed Treatment 1 visit FA Parisa' ROSENDO DOWNS PT Jun 16, 2021 11:14
[2021-06-16 12:00] VITALS: BP 117/61
--- NOTE | 2021-06-16 13:57 | Progress Note - Hospitalist ---
Subjective HPI/CC On Admission Date Seen by Provider: Jun 16, 2021 Time Seen by Provider: 10:00 Pt is a 76yoCM with a IDDMII, HLD who presented to the ER due to fever and weakness. He is unable to give me any history. He is awake but mostly nods his head and I am unsure if this is appropriate. All history is obtained from the records. Daughter reported tot he ER that he was weak for the past week and seen in the [place] ER 2 days ago and diagnosed with a UTI and DCed home with macrobid. He continued to fever and was brought here for reevaluation where he was found to be hypoxic and COVID+. He is unvaccinated per his daughters report. He is being admitted for further care. Subjective/Events-last exam He is feeling ok today. He is laying in bed. He feels ready to go home. He denies pain. He denies breathing trouble. Objective Exam Vital Signs Vital Signs Date Time Temp Pulse Resp B/P (MAP) Pulse Ox O2 Delivery O2 Flow Rate FiO2 06/16/21 12:00 35.8 102 21 117/61 (79) 91 Nasal Cannula 2.00 06/13/21 03:47 32 Capillary Refill : Less Than 3 Seconds General Appearance: No Apparent Distress, Chronically ill, Thin Respiratory: Lungs Clear, Normal Breath Sounds, No Respiratory Distress Cardiovascular: Regular Rate, Rhythm, No Edema, No Murmur Gastrointestinal: Normal Bowel Sounds, Non Tender, Soft Extremity: Normal Inspection, Non Tender, No Pedal Edema Neurologic/Psychiatric: Alert, Oriented x3, No Motor/Sensory Deficits, Normal Mood/Affect Skin: Normal Color, Warm/Dry Results/Procedures Lab Laboratory Tests 06/16/21 05:15 Patient resulted labs reviewed. Imaging: Reviewed Imaging Report Assessment/Plan Assessment and Plan Assess & Plan/Chief Complaint Acute respiratory failure due to COVID-19 Debility Decadron Remdesivir stopped due to renal function Requiring 3 L nasal cannula MAT protocol IS PT/OT UTI Urine culture with yeast Diflucan T2DM Steroid induced hyperglycemia Add Levemir Sliding scale DVT ppx: lovenox Diagnosis/Problems Diagnosis/Problems (1) Acute respiratory failure Status: Acute Qualifiers: Respiratory failure complication: hypoxia Qualified Codes: J96.01 - Acute respiratory failure with hypoxia (2) COVID-19 Status: Acute (3) Insulin dependent diabetes mellitus Status: Acute EDMOND HERRERA MD Jun 16, 2021 13:57
--- NOTE | 2021-06-16 14:29 | Occupational Ther Daily Note ---
OT Current Status-Daily Note Subjective Pt seated in recliner, agreeable to OT tx. Mental Status/Objective Patient Orientation: Person, Confused Attachments: Oxygen ADL-Treatment Therapy Code Descriptions/Definitions Functional [place] Measure: 0=Not Assessed/NA 4=Minimal Assistance 1=Total Assistance 5=Supervision or Setup 2=Maximal Assistance 6=Modified [place] 3=Moderate Assistance 7=Complete IndependenceSCALE: Activities may be completed with or without assistive devices. 0-Ofmtyldday-ejgsfsa completes the activity by him/herself with no assistance from a helper. 5-Set-up or Clean-up Assistance-helper sets up or cleans up; patient completes activity. [place] assists only prior to or following the activity. 4-Supervision or Touching Assistance-helper provides verbal cues and/or touching/steadying and/or contact guard assistance as patient completes activity. Assistance may be provided throughout the activity or intermittently. 3-Partial/Moderate Assistance-helper does LESS THAN HALF the effort. [place] lifts, holds or supports trunk or limbs, but provides less than half the effort. 2-Substantial/Maximal Assistance-helper does MORE THAN HALF the effort. [place] lifts or holds trunk or limbs and provides more than half the effort. 2-Jifkdnyxp-saocme does ALL the effort. Patient does none of the effort to complete the activity. Or, the assistance of 2 or more helpers is required for the patient to complete the activity. If activity was not attempted, code reason: 7-Patient Refused. 9-Not Applicable-not attempted and the patient did not perform the activity before the current illness, exacerbation or injury. 10-Not Attempted due to Environmental Limitations-(lack of equipment, weather restraints, etc.). 88-Not Attempted due to Medical Conditions or Safety Concerns. Eating (QC): 5 (per pt report) Other Treatment Pt seated upright in recliner. OT tx with focus on increasing BUE strength, activity tolerance, and pulmonary function. Pt completed x10 reps each of the following BUE exercises: shoulder flexion, elbow flexion, and elbow extension. Pt took rest breaks between each exercise, and required min verbal cues in order to complete all exercises. With exercises, pt would stop after ~5 reps and scratch his nose or adjust O2 NC, requiring redirection to task. OT instructed pt to complete exercises throughout the day, increasing reps as tolerated. Post tx, pt seated upright in recliner, call light in reach and all needs met. Education OT Patient Education: Correct positioning, Energy conservation, Exercise program, Modified ADL techniques, Progress toward Goal/Update tx plan, Purpose of tx/functional activities, Rehab process Teaching Recipient: Patient Teaching Methods: Discussion Response to Teaching: Verbalize Understanding OT Prison Goals Defense Attorney Goals Time Frame: Jul 04, 2021 Eating (QC): 6 Oral Hygiene (QC): 6 Toileting Hygiene (QC): 5 Shower/Bathe Self (QC): 4 Upper Body Dressing (QC): 6 Lower Body Dressing (QC): 4 On/Off Footwear (QC): 4 Additional Goals: 1-Demonstrate ADL Tasks, 2-Verbalize Understanding, 3- ImproveStrength/Rafaela 1=Demonstrate adherence to instructed precautions during ADL tasks. 2=Patient will verbalize/demonstrate understanding of assistive devices/modifications for ADL. 3=Patient will improve strength/tolerance for activity to enable patient to perform ADL's. OT Education/Plan Problem List/Assessment Assessment: Decreased Activ Tolerance, Decreased UE Strength, Impaired I ADL's, Impaired Self-Care Skills Discharge Recommendations Plan/Recommendations: Continue POC Treatment Plan/Plan of Care Patient would benefit from OT for education, treatment and training to promote independence in ADL's, mobility, safety and/or upper extremity function for ADL's. Plan of Care: ADL Retraining, Functional Mobility, UE Funct Exercise/Act Treatment Duration: Jul 04, 2021 Frequency: 5 times per week Estimated Hrs Per Day: .25 hour per day Rehab Potential: Guarded Time/GCodes Start Time: 13:55 Stop Time: 14:12 Total Time Billed (hr/min): 17 Billed Treatment Time 1, EX GELACIO COX OT Jun 16, 2021 14:29
[2021-06-16] MEDS ORDERED: fluCOnazole (DIFLUCAN) 100 MG TAB PO NR (15:00)
[2021-06-16 16:29] VITALS: BP 135/75
[2021-06-16] MEDS: ENOXAPARIN 30 MG/0.3 ML (LOVENOX) SYR SC SCH (17:32)
[2021-06-16 19:59] VITALS: BP 155/77
[2021-06-17] VITALS (7 sets, daily range): BP systolic 121–155; BP diastolic 68–90
[2021-06-17] MEDS: inSUlin ASPART (NovoLOG) 1 UNIT/0.01 ML (CHARGE PER UNIT) SC SCH ×5 (06:01→22:03)
[2021-06-17 07:28] LABS: BASOPHILS % (AUTO) 0 % (0-10); EOSINOPHILS % (AUTO) 0 % (0-10); HEMATOCRIT 36 % (40-54); HEMOGLOBIN 12.3 g/dL (13.3-17.7); LYMPHOCYTES % (AUTO) 14 % (12-44); MEAN CORPUSCULAR HEMOGLOBIN 32 pg (25-34); MEAN CORPUSCULAR HGB CONC 35 g/dL (32-36); MEAN CORPUSCULAR VOLUME 91 fL (80-99); MEAN PLATELET VOLUME 9.7 fL (9.0-12.2); MONOCYTES # (AUTO) 0.4 10^3/uL (0.0-1.0); MONOCYTES % (AUTO) 6 % (0-12); NEUTROPHILS # (AUTO) 5.4 10^3/uL (1.8-7.8); NEUTROPHILS % (AUTO) 80 % (42-75); PLATELET COUNT 246 10^3/uL (130-400); WHITE BLOOD COUNT 6.8 10^3/uL (4.3-11.0)
[2021-06-17 07:42] LABS: CALCIUM 8.7 MG/DL (8.5-10.1); CREATININE SERUM 1.84 MG/DL (0.60-1.30); POTASSIUM 4.2 MMOL/L (3.6-5.0)
[2021-06-17] MEDS ORDERED: fluCOnazole (DIFLUCAN) 100 MG TAB PO SCH (09:00)
[2021-06-17] MEDS: VITAMIN D3 25 MCG (1,000 UNITS) TABLET PO SCH (09:19)
[2021-06-17] MEDS: fluCOnazole (DIFLUCAN) 100 MG TAB PO SCH (09:19)
[2021-06-17] MEDS: dexAMETHasone 6 MG TAB (DECADRON) PO SCH (09:19)
--- NOTE | 2021-06-17 11:28 | Progress Note - Hospitalist ---
Subjective HPI/CC On Admission Date Seen by Provider: Jun 17, 2021 Time Seen by Provider: 09:45 Pt is a 76yoCM with a IDDMII, HLD who presented to the ER due to fever and weakness. He is unable to give me any history. He is awake but mostly nods his head and I am unsure if this is appropriate. All history is obtained from the records. Daughter reported tot he ER that he was weak for the past week and seen in the [place] [facility] 2 days ago and diagnosed with a UTI and DCed home with macrobid. He continued to fever and was brought here for reevaluation where he was found to be hypoxic and COVID+. He is unvaccinated per his daughters report. He is being admitted for further care. Subjective/Events-last exam He is feeling okay. He is still having trouble with weakness. He has been eating breakfast. He has been working with physical therapy. Objective Exam Vital Signs Vital Signs Date Time Temp Pulse Resp B/P (MAP) Pulse Ox O2 Delivery O2 Flow Rate FiO2 06/17/21 08:00 93 Nasal Cannula 3.00 06/17/21 08:00 36.6 96 20 155/90 (111) 06/13/21 03:47 32 Capillary Refill : Less Than 3 Seconds General Appearance: No Apparent Distress, Chronically ill Respiratory: Lungs Clear, Normal Breath Sounds, No Respiratory Distress Cardiovascular: Regular Rate, Rhythm, No Edema, No Murmur Gastrointestinal: Normal Bowel Sounds, Non Tender, Soft Extremity: Normal Inspection, Non Tender, No Pedal Edema Neurologic/Psychiatric: Alert, Motor Weakness Skin: Normal Color, Warm/Dry Results/Procedures Lab Laboratory Tests 06/17/21 07:20 Patient resulted labs reviewed. Imaging: Reviewed Imaging Report Assessment/Plan Assessment and Plan Assess & Plan/Chief Complaint Acute respiratory failure due to COVID-19 Debility Decadron Remdesivir stopped due to renal function Requiring 3 L nasal cannula MAT protocol IS PT/OT UTI Urine culture with yeast Diflucan T2DM Steroid induced hyperglycemia Continue Levemir Decrease sliding scale DVT ppx: lovenox Diagnosis/Problems Diagnosis/Problems (1) Acute respiratory failure Status: Acute Qualifiers: Respiratory failure complication: hypoxia Qualified Codes: J96.01 - Acute respiratory failure with hypoxia (2) COVID-19 Status: Acute (3) Insulin dependent diabetes mellitus Status: Acute (4) Debility Status: Acute SHARON,EDMOND M MD Jun 17, 2021 11:28
--- NOTE | 2021-06-17 12:43 | Physical Therapy Daily Note ---
PT Daily Note-Current Subjective Patient in bed pre tx, agrees to PT, has no complaints of pain Appearance Patient in recliner post tx with nurse call, phone, tray, legs elevated, chair alarm on. Mental Status Patient Orientation: Person, Unable to Assess, [place] Attachments: Oxygen Transfers SCALE: Activities may be completed with or without assistive devices. 9-Lzyzbonvcp-jxahehi completes the activity by him/herself with no assistance from a helper. 5-Set-up or Clean-up Assistance-helper sets up or cleans up; patient completes activity. [place] assists only prior to or following the activity. 4-Supervision or Touching Assistance-helper provides verbal cues and/or touching/steadying and/or contact guard assistance as patient completes activity. Assistance may be provided throughout the activity or intermittently. 3-Partial/Moderate Assistance-helper does LESS THAN HALF the effort. [place] lifts, holds or supports trunk or limbs, but provides less than half the effort. 2-Substantial/Maximal Assistance-helper does MORE THAN HALF the effort. [place] lifts or holds trunk or limbs and provides more than half the effort. 0-Hzpghwmbr-jtdtbx does ALL the effort. Patient does none of the effort to complete the activity. Or, the assistance of 2 or more helpers is required for the patient to complete the activity. If activity was not attempted, code reason: 7-Patient Refused. 9-Not Applicable-not attempted and the patient did not perform the activity before the current illness, exacerbation or injury. 10-Not Attempted due to Environmental Limitations-(lack of equipment, weather restraints, etc.). 88-Not Attempted due to Medical Conditions or Safety Concerns. Roll Left & Right (QC): 3 Lying to Sitting/Side of Bed(Q: 2 Sit to Stand (QC): 2 Chair/Neb-lg-Gajzy Xfer(QC): 2 Patient had trouble sitting on the side of the bed, retropulsive, max assist stand pivot to recliner. Attempted to stand up to a rolling walker but he was only able to stand for a couple of seconds. Exercises Seated Therapy Exercises: Ankle pumps, Long arc quads Seated Reps: 20 Treatments bed mobility and transfer, LE exercise Assessment Current Status: Poor Progress decline in functional mobility PT Flight Coordinator Goals Flight Coordinator Goals PT Intermediate Goals Time Frame: Jun 20, 2021 Roll Left & Right (QC): 6 Sit to Lying (QC): 5 Lying-Sitting on Side/Bed(QC): 5 Sit to Stand (QC): 3 Chair/Caf-ve-Qdszs Xfer(QC): 3 Walk 10 feet (QC): 3 Walk 50ft with 2 Turns (QC): 3 PT Plan Problem List Problem List: Activity Tolerance, Functional Strength, Safety, Balance, Gait, Transfer, Bed Mobility, ROM Treatment/Plan Treatment Plan: Continue Plan of Care Treatment Plan: Bed Mobility, Education, Functional Activity Rafaela, Functional Strength, Gait, Safety, Therapeutic Exercise, Transfers Treatment Duration: Jun 20, 2021 Frequency: 6 times per week Estimated Hrs Per Day: .25 hour per day Patient and/or Family Agrees t: Yes Safety Risks/Education Patient Education: Transfer Techniques, Correct Positioning, Safety Issues Teaching Recipient: Patient Teaching Methods: Demonstration, Discussion Response to Teaching: Reinforcement Needed Time/GCodes Time In: 1121 Time Out: 1132 Total Billed Treatment Time: 11 Total Billed Treatment 1 visit FA ROSENDO TOBAR PT Jun 17, 2021 12:43
--- NOTE | 2021-06-17 14:55 | Occupational Ther Daily Note ---
OT Current Status-Daily Note Subjective Pt seated upright in chair. Did not communicate with OT throughout session, barely nodding/shaking his head to questions and did not verbalize. Mental Status/Objective Attachments: Oxygen ADL-Treatment Therapy Code Descriptions/Definitions Functional [place] Measure: 0=Not Assessed/NA 4=Minimal Assistance 1=Total Assistance 5=Supervision or Setup 2=Maximal Assistance 6=Modified [place] 3=Moderate Assistance 7=Complete IndependenceSCALE: Activities may be completed with or without assistive devices. 7-Fxhnohgbyn-dubgeig completes the activity by him/herself with no assistance from a helper. 5-Set-up or Clean-up Assistance-helper sets up or cleans up; patient completes activity. [place] assists only prior to or following the activity. 4-Supervision or Touching Assistance-helper provides verbal cues and/or touching/steadying and/or contact guard assistance as patient completes activity. Assistance may be provided throughout the activity or intermittently. 3-Partial/Moderate Assistance-helper does LESS THAN HALF the effort. [place] lifts, holds or supports trunk or limbs, but provides less than half the effort. 2-Substantial/Maximal Assistance-helper does MORE THAN HALF the effort. [place] lifts or holds trunk or limbs and provides more than half the effort. 1-Kkqajuhkn-aakjmn does ALL the effort. Patient does none of the effort to complete the activity. Or, the assistance of 2 or more helpers is required for the patient to complete the activity. If activity was not attempted, code reason: 7-Patient Refused. 9-Not Applicable-not attempted and the patient did not perform the activity before the current illness, exacerbation or injury. 10-Not Attempted due to Environmental Limitations-(lack of equipment, weather restraints, etc.). 88-Not Attempted due to Medical Conditions or Safety Concerns. Toileting Hygiene (QC): 1 Other Treatment Pt up in chair, transferred from recliner to EOB with assist x2. Pt had flexed posture throughout transfer, did not stand upright with cues. Pt having BM t hroughout transfer, requiring total assist to clean at bed level, assist rolling side to side as pt was holding onto bed rail and would not let go. Post tx, pt laying in bed, call light in reach and all needs met. Education OT Patient Education: Correct positioning, Modified ADL techniques, Progress toward Goal/Update tx plan, Purpose of tx/functional activities, Rehab process Teaching Recipient: Patient Teaching Methods: Discussion OT Assisted Goals Register Clerk Goals Time Frame: Jul 04, 2021 Eating (QC): 6 Oral Hygiene (QC): 6 Toileting Hygiene (QC): 5 Shower/Bathe Self (QC): 4 Upper Body Dressing (QC): 6 Lower Body Dressing (QC): 4 On/Off Footwear (QC): 4 Additional Goals: 1-Demonstrate ADL Tasks, 2-Verbalize Understanding, 3- ImproveStrength/Rafaela 1=Demonstrate adherence to instructed precautions during ADL tasks. 2=Patient will verbalize/demonstrate understanding of assistive devices/modifications for ADL. 3=Patient will improve strength/tolerance for activity to enable patient to perform ADL's. OT Education/Plan Problem List/Assessment Assessment: Decreased Activ Tolerance, Decreased UE Strength, Dependent Transfers, Impaired Bed Mobility, Impaired Funct Balance, Impaired I ADL's, Impaired Self-Care Skills Discharge Recommendations Plan/Recommendations: Continue POC Treatment Plan/Plan of Care Patient would benefit from OT for education, treatment and training to promote independence in ADL's, mobility, safety and/or upper extremity function for ADL's. Plan of Care: ADL Retraining, Functional Mobility, UE Funct Exercise/Act Treatment Duration: Jul 04, 2021 Frequency: 5 times per week Estimated Hrs Per Day: .25 hour per day Rehab Potential: Guarded Time/GCodes Start Time: 13:55 Stop Time: 14:20 Total Time Billed (hr/min): 25 Billed Treatment Time 1, ADL 2 GELACIO COX OT Jun 17, 2021 14:55
[2021-06-17] MEDS: ENOXAPARIN 30 MG/0.3 ML (LOVENOX) SYR SC SCH (17:14)
[2021-06-18 03:12] VITALS: BP 137/68
[2021-06-18] MEDS: inSUlin ASPART (NovoLOG) 1 UNIT/0.01 ML (CHARGE PER UNIT) SC SCH ×4 (05:22→21:18)
[2021-06-18 06:42] LABS: BASOPHILS % (AUTO) 0 % (0-10); EOSINOPHILS % (AUTO) 0 % (0-10); HEMATOCRIT 35 % (40-54); HEMOGLOBIN 11.9 g/dL (13.3-17.7); LYMPHOCYTES # (AUTO) 0.5 10^3/uL (1.0-4.0); LYMPHOCYTES % (AUTO) 11 % (12-44); MEAN CORPUSCULAR HEMOGLOBIN 32 pg (25-34); MEAN CORPUSCULAR HGB CONC 34 g/dL (32-36); MEAN CORPUSCULAR VOLUME 92 fL (80-99); MEAN PLATELET VOLUME 10.3 fL (9.0-12.2); MONOCYTES # (AUTO) 0.3 10^3/uL (0.0-1.0); MONOCYTES % (AUTO) 5 % (0-12); NEUTROPHILS # (AUTO) 4.2 10^3/uL (1.8-7.8); NEUTROPHILS % (AUTO) 84 % (42-75); PLATELET COUNT 268 10^3/uL (130-400); WHITE BLOOD COUNT 5.1 10^3/uL (4.3-11.0)
[2021-06-18 06:53] LABS: POTASSIUM 4.6 MMOL/L (3.6-5.0)
[2021-06-18 06:54] LABS: CALCIUM 8.8 MG/DL (8.5-10.1)
[2021-06-18 06:59] LABS: CREATININE SERUM 1.76 MG/DL (0.60-1.30)
[2021-06-18 08:00] VITALS: BP 148/73
[2021-06-18] MEDS: fluCOnazole (DIFLUCAN) 100 MG TAB PO SCH (09:38)
[2021-06-18] MEDS: VITAMIN D3 25 MCG (1,000 UNITS) TABLET PO SCH (09:38)
[2021-06-18] MEDS: dexAMETHasone 6 MG TAB (DECADRON) PO SCH (09:38)
--- NOTE | 2021-06-18 10:28 | Physical Therapy Daily Note ---
PT Daily Note-Current Subjective Patient lying supine in bed upon PT arrival, difficult to arouse initially. Patient reports no pain currently, however has trouble staying awake to answer questions or engage in treatment. Mental Status Patient Orientation: Person Transfers SCALE: Activities may be completed with or without assistive devices. 2-Fhfabrvdla-geegthm completes the activity by him/herself with no assistance from a helper. 5-Set-up or Clean-up Assistance-helper sets up or cleans up; patient completes activity. [place] assists only prior to or following the activity. 4-Supervision or Touching Assistance-helper provides verbal cues and/or touchi ng/steadying and/or contact guard assistance as patient completes activity. Assistance may be provided throughout the activity or intermittently. 3-Partial/Moderate Assistance-helper does LESS THAN HALF the effort. [place] lifts, holds or supports trunk or limbs, but provides less than half the effort. 2-Substantial/Maximal Assistance-helper does MORE THAN HALF the effort. [place] lifts or holds trunk or limbs and provides more than half the effort. 3-Kulxvcfln-nuilzu does ALL the effort. Patient does none of the effort to complete the activity. Or, the assistance of 2 or more helpers is required for the patient to complete the activity. If activity was not attempted, code reason: 7-Patient Refused. 9-Not Applicable-not attempted and the patient did not perform the activity before the current illness, exacerbation or injury. 10-Not Attempted due to Environmental Limitations-(lack of equipment, weather restraints, etc.). 88-Not Attempted due to Medical Conditions or Safety Concerns. Roll Left & Right (QC): 3 Sit to Lying (QC): 3 Lying to Sitting/Side of Bed(Q: 3 Sit to Stand (QC): 3 Chair/Vwe-wp-Puoke Xfer(QC): 3 Gait Training Does the Patient Walk?: Yes Distance: 5 ft Walk 10 feet (QC): 88 Gait Persons Needed: 1 Gait Assistive Device: FWW Exercises Supine Ex: Ankle pumps Supine Reps: 10 Attempted to perform therapeutic exercise in bed and in chair, however patient could not stay awake to participate. Assessment Current Status: Fair Progress Patient lying supine in bed, agreeable to treatment but groggy throughout treatment. Patient performs all observed bed mobility and transfer with mod A and frequent verbal cues for safety and performance. He is able to ambulate 5 feet with FWW, with mod A and verbal cues. Patient is unable to safely descend to chair upon sitting and flops into chair despite verbal and tactile cues. Patient attempts to perform LE exercise, but is unable to stay awake. Patient in chair post treatment with all needs met, nursing notified, call light in reach. PT Detention Goals Trim Sawyer Goals PT Detention Goals Time Frame: Jun 20, 2021 Roll Left & Right (QC): 6 Sit to Lying (QC): 5 Lying-Sitting on Side/Bed(QC): 5 Sit to Stand (QC): 3 Chair/Zpl-at-Mbajk Xfer(QC): 3 Walk 10 feet (QC): 3 Walk 50ft with 2 Turns (QC): 3 PT Plan Treatment/Plan Treatment Plan: Continue Plan of Care Treatment Plan: Bed Mobility, Education, Functional Activity Rafaela, Functional Strength, Gait, Safety, Therapeutic Exercise, Transfers Treatment Duration: Jun 20, 2021 Frequency: 6 times per week Estimated Hrs Per Day: .25 hour per day Patient and/or Family Agrees t: Yes Safety Risks/Education Patient Education: Gait Training, Transfer Techniques Teaching Recipient: Patient Teaching Methods: Demonstration, Discussion Response to Teaching: Verbalize Understanding, Reinforcement Needed Time/GCodes Time In: 1000 Time Out: 1024 Total Billed Treatment Time: 24 Total Billed Treatment Visit, FA (2) LEXIE WILLIAM PT Jun 18, 2021 10:28
--- NOTE | 2021-06-18 11:33 | Progress Note - Hospitalist ---
Subjective HPI/CC On Admission Date Seen by Provider: Jun 18, 2021 Time Seen by Provider: 09:30 Pt is a 76yoCM with a IDDMII, HLD who presented to the ER due to fever and weakness. He is unable to give me any history. He is awake but mostly nods his head and I am unsure if this is appropriate. All history is obtained from the records. Daughter reported tot he ER that he was weak for the past week and seen in the [place] ER 2 days ago and diagnosed with a UTI and DCed home with macrobid. He continued to fever and was brought here for reevaluation where he was found to be hypoxic and COVID+. He is unvaccinated per his daughters report. He is being admitted for further care. Subjective/Events-last exam He is doing well this morning. He is eating his breakfast. He is not short of breath. He denies any pain. He has no complaints or concerns. Objective Exam Vital Signs Vital Signs Date Time Temp Pulse Resp B/P (MAP) Pulse Ox O2 Delivery O2 Flow Rate FiO2 06/18/21 08:00 35.7 79 22 148/73 (98) 95 Nasal Cannula 4.00 06/13/21 03:47 32 Capillary Refill : Less Than 3 Seconds General Appearance: No Apparent Distress, Thin Respiratory: Lungs Clear, Normal Breath Sounds, No Respiratory Distress Cardiovascular: Regular Rate, Rhythm, No Edema, No Murmur Gastrointestinal: Normal Bowel Sounds, Non Tender, Soft Extremity: Normal Inspection, No Pedal Edema Neurologic/Psychiatric: Alert, Motor Weakness Skin: Normal Color, Warm/Dry Results/Procedures Lab Laboratory Tests 06/18/21 06:04 Patient resulted labs reviewed. Imaging: Reviewed Imaging Report Assessment/Plan Assessment and Plan Assess & Plan/Chief Complaint Acute respiratory failure due to COVID-19 Debility Decadron Remdesivir stopped due to renal function Requiring 3 L nasal cannula, stable MAT protocol IS PT/OT UTI Urine culture with yeast Diflucan T2DM Steroid induced hyperglycemia Continue Levemir Decrease sliding scale DVT ppx: lovenox Diagnosis/Problems Diagnosis/Problems (1) Acute respiratory failure Status: Acute Qualifiers: Respiratory failure complication: hypoxia Qualified Codes: J96.01 - Acute respiratory failure with hypoxia (2) COVID-19 Status: Acute (3) Insulin dependent diabetes mellitus Status: Acute (4) Debility Status: Acute EDMOND HERRERA MD Jun 18, 2021 11:33
[2021-06-18 12:00] VITALS: BP 123/71
--- NOTE | 2021-06-18 13:53 | Occupational Ther Daily Note ---
OT Current Status-Daily Note Subjective Pt up in recliner, agreeable to OT evaluation. Pt soft spoken, but held short conversation with OT. Mental Status/Objective Attachments: Oxygen ADL-Treatment Therapy Code Descriptions/Definitions Functional [place] Measure: 0=Not Assessed/NA 4=Minimal Assistance 1=Total Assistance 5=Supervision or Setup 2=Maximal Assistance 6=Modified [place] 3=Moderate Assistance 7=Complete IndependenceSCALE: Activities may be completed with or without assistive devices. 0-Mmctcvprkd-pntjpmz completes the activity by him/herself with no assistance f rom a helper. 5-Set-up or Clean-up Assistance-helper sets up or cleans up; patient completes activity. [place] assists only prior to or following the activity. 4-Supervision or Touching Assistance-helper provides verbal cues and/or touching/steadying and/or contact guard assistance as patient completes activity. Assistance may be provided throughout the activity or intermittently. 3-Partial/Moderate Assistance-helper does LESS THAN HALF the effort. [place] lifts, holds or supports trunk or limbs, but provides less than half the effort. 2-Substantial/Maximal Assistance-helper does MORE THAN HALF the effort. [place] lifts or holds trunk or limbs and provides more than half the effort. 8-Nmdkklexe-cvzygd does ALL the effort. Patient does none of the effort to complete the activity. Or, the assistance of 2 or more helpers is required for the patient to complete the activity. If activity was not attempted, code reason: 7-Patient Refused. 9-Not Applicable-not attempted and the patient did not perform the activity before the current illness, exacerbation or injury. 10-Not Attempted due to Environmental Limitations-(lack of equipment, weather restraints, etc.). 88-Not Attempted due to Medical Conditions or Safety Concerns. Other Treatment Pt up in recliner, head flexed forward. OT assisted pt to comfort, reclining chair slightly and placing pillow behind his head. Pt states he is more comfortable. Pt required mod A with washing his face. OT placed wash cloth in pt's hand, then provided hand over hand assistance to face. Pt able to then hold his arm up and wash his mouth. OT assisted with washing forehead and eyes. OT completed hair washing with total assist. Post tx, pt up in recliner, call light in reach and all needs met. Education OT Patient Education: Correct positioning, Energy conservation, Exercise program, Modified ADL techniques, Progress toward Goal/Update tx plan, Purpose of tx/functional activities Teaching Recipient: Patient Teaching Methods: Discussion Response to Teaching: Verbalize Understanding OT Agricultural Technician Goals Agricultural Technician Goals Time Frame: Jul 04, 2021 Eating (QC): 6 Oral Hygiene (QC): 6 Toileting Hygiene (QC): 5 Shower/Bathe Self (QC): 4 Upper Body Dressing (QC): 6 Lower Body Dressing (QC): 4 On/Off Footwear (QC): 4 Additional Goals: 1-Demonstrate ADL Tasks, 2-Verbalize Understanding, 3- ImproveStrength/Rafaela 1=Demonstrate adherence to instructed precautions during ADL tasks. 2=Patient will verbalize/demonstrate understanding of assistive devices/modifications for ADL. 3=Patient will improve strength/tolerance for activity to enable patient to perform ADL's. OT Education/Plan Problem List/Assessment Assessment: Decreased Activ Tolerance, Decreased UE Strength, Impaired Funct Balance, Impaired I ADL's, Impaired Self-Care Skills Discharge Recommendations Plan/Recommendations: Continue POC Treatment Plan/Plan of Care Patient would benefit from OT for education, treatment and training to promote independence in ADL's, mobility, safety and/or upper extremity function for ADL's. Plan of Care: ADL Retraining, Functional Mobility, UE Funct Exercise/Act Treatment Duration: Jul 04, 2021 Frequency: 5 times per week Estimated Hrs Per Day: .25 hour per day Rehab Potential: Guarded Time/GCodes Start Time: 10:50 Stop Time: 10:59 Total Time Billed (hr/min): 9 Billed Treatment Time 1, ADL GELACIO COX OT Jun 18, 2021 13:53
[2021-06-18 16:00] VITALS: BP 156/74
[2021-06-18] MEDS: ENOXAPARIN 30 MG/0.3 ML (LOVENOX) SYR SC SCH (17:08)
[2021-06-18 19:24] VITALS: BP 145/78
[2021-06-18 23:35] VITALS: BP 151/76
[2021-06-19 05:00] VITALS: BP 141/76
[2021-06-19] MEDS: inSUlin ASPART (NovoLOG) 1 UNIT/0.01 ML (CHARGE PER UNIT) SC SCH ×5 (05:54→20:29)
[2021-06-19 06:37] LABS: BASOPHILS % (AUTO) 0 % (0-10); EOSINOPHILS % (AUTO) 0 % (0-10); HEMATOCRIT 35 % (40-54); HEMOGLOBIN 11.7 g/dL (13.3-17.7); LYMPHOCYTES # (AUTO) 0.5 10^3/uL (1.0-4.0); LYMPHOCYTES % (AUTO) 9 % (12-44); MEAN CORPUSCULAR HEMOGLOBIN 31 pg (25-34); MEAN CORPUSCULAR HGB CONC 34 g/dL (32-36); MEAN CORPUSCULAR VOLUME 92 fL (80-99); MEAN PLATELET VOLUME 10.4 fL (9.0-12.2); MONOCYTES # (AUTO) 0.3 10^3/uL (0.0-1.0); MONOCYTES % (AUTO) 5 % (0-12); NEUTROPHILS # (AUTO) 4.6 10^3/uL (1.8-7.8); NEUTROPHILS % (AUTO) 85 % (42-75); PLATELET COUNT 316 10^3/uL (130-400); WHITE BLOOD COUNT 5.5 10^3/uL (4.3-11.0)
[2021-06-19 06:48] LABS: CALCIUM 8.9 MG/DL (8.5-10.1); CREATININE SERUM 2.05 MG/DL (0.60-1.30); POTASSIUM 4.7 MMOL/L (3.6-5.0)
[2021-06-19 08:00] VITALS: BP 158/85
[2021-06-19] MEDS: dexAMETHasone 6 MG TAB (DECADRON) PO SCH (09:21)
[2021-06-19] MEDS: VITAMIN D3 25 MCG (1,000 UNITS) TABLET PO SCH (09:21)
[2021-06-19] MEDS: fluCOnazole (DIFLUCAN) 100 MG TAB PO SCH (09:21)
--- NOTE | 2021-06-19 09:32 | Physical Therapy Daily Note ---
PT Daily Note-Current Subjective Patient in bed pre tx, agrees to PT, has no complaints of pain. Patient seems a little more alert today. Appearance Patient in recliner post tx with nurse call, phone, tray, all needs met. Mental Status Patient Orientation: Person, Confused Attachments: Oxygen Transfers SCALE: Activities may be completed with or without assistive devices. 4-Tergzoooxx-mpzalvt completes the activity by him/herself with no assistance from a helper. 5-Set-up or Clean-up Assistance-helper sets up or cleans up; patient completes activity. [place] assists only prior to or following the activity. 4-Supervision or Touching Assistance-helper provides verbal cues and/or touching/steadying and/or contact guard assistance as patient completes activity. Assistance may be provided throughout the activity or intermittently. 3-Partial/Moderate Assistance-helper does LESS THAN HALF the effort. [place] lifts, holds or supports trunk or limbs, but provides less than half the effort. 2-Substantial/Maximal Assistance-helper does MORE THAN HALF the effort. [place] lifts or holds trunk or limbs and provides more than half the effort. 8-Rujollekw-qivxzf does ALL the effort. Patient does none of the effort to complete the activity. Or, the assistance of 2 or more helpers is required for the patient to complete the activity. If activity was not attempted, code reason: 7-Patient Refused. 9-Not Applicable-not attempted and the patient did not perform the activity before the current illness, exacerbation or injury. 10-Not Attempted due to Environmental Limitations-(lack of equipment, weather restraints, etc.). 88-Not Attempted due to Medical Conditions or Safety Concerns. Roll Left & Right (QC): 3 Lying to Sitting/Side of Bed(Q: 3 Sit to Stand (QC): 3 Chair/His-jx-Loesl Xfer(QC): 4 Gait Training Distance: 10' Walk 10 feet (QC): 3 Gait Assistive Device: FWW Patient was able to ambulate a few feet forward and back and then to the recliner, needed min assist for retropulsion Exercises Seated Therapy Exercises: Ankle pumps, Long arc quads Seated Reps: 20 Treatments bed mobility and transfers, ambulation, LE strengthening Assessment Current Status: Fair Progress improved transfers and ambulation from yesterday PT Fdc Goals Fdc Goals PT Event Executive Goals Time Frame: Jun 20, 2021 Roll Left & Right (QC): 6 Sit to Lying (QC): 5 Lying-Sitting on Side/Bed(QC): 5 Sit to Stand (QC): 3 Chair/Cup-rr-Kontz Xfer(QC): 3 Walk 10 feet (QC): 3 Walk 50ft with 2 Turns (QC): 3 PT Plan Problem List Problem List: Activity Tolerance, Functional Strength, Safety, Balance, Gait, Transfer, Bed Mobility, ROM Treatment/Plan Treatment Plan: Continue Plan of Care Treatment Plan: Bed Mobility, Education, Functional Activity Rafaela, Functional Strength, Gait, Safety, Therapeutic Exercise, Transfers Treatment Duration: Jun 20, 2021 Frequency: 6 times per week Estimated Hrs Per Day: .25 hour per day Patient and/or Family Agrees t: Yes Safety Risks/Education Patient Education: Gait Training, Transfer Techniques, Correct Positioning, Safety Issues Teaching Recipient: Patient Teaching Methods: Demonstration, Discussion Response to Teaching: Reinforcement Needed Time/GCodes Time In: 0900 Time Out: 910 Total Billed Treatment Time: 11 Total Billed Treatment 1 visit FA ROSENDO TOBAR PT Jun 19, 2021 09:32
[2021-06-19 12:00] VITALS: BP 129/73
--- NOTE | 2021-06-19 13:22 | Progress Note - Hospitalist ---
Subjective HPI/CC On Admission Date Seen by Provider: Jun 19, 2021 Time Seen by Provider: 09:20 Pt is a 76yoCM with a IDDMII, HLD who presented to the ER due to fever and weakness. He is unable to give me any history. He is awake but mostly nods his head and I am unsure if this is appropriate. All history is obtained from the records. Daughter reported tot he ER that he was weak for the past week and seen in the [place] ER 2 days ago and diagnosed with a UTI and DCed home with macrobid. He continued to fever and was brought here for reevaluation where he was found to be hypoxic and COVID+. He is unvaccinated per his daughters report. He is being admitted for further care. Subjective/Events-last exam He is sitting in his chair. He is eating breakfast. He is not short of breath. He has no complaints or concerns. Objective Exam Vital Signs Vital Signs Date Time Temp Pulse Resp B/P (MAP) Pulse Ox O2 Delivery O2 Flow Rate FiO2 06/19/21 12:00 36.3 81 18 129/73 (91) 93 Nasal Cannula 3.00 06/13/21 03:47 32 Capillary Refill : Less Than 3 Seconds General Appearance: No Apparent Distress, Chronically ill Respiratory: Lungs Clear, Normal Breath Sounds, No Respiratory Distress Cardiovascular: Regular Rate, Rhythm, No Edema, No Murmur Gastrointestinal: Normal Bowel Sounds, Non Tender, Soft Extremity: Normal Inspection, Non Tender, No Pedal Edema Neurologic/Psychiatric: Alert, Normal Mood/Affect, Motor Weakness Skin: Normal Color, Warm/Dry Results/Procedures Lab Laboratory Tests 06/19/21 05:34 Patient resulted labs reviewed. Imaging: Reviewed Imaging Report Assessment/Plan Assessment and Plan Assess & Plan/Chief Complaint Acute respiratory failure due to COVID-19 Debility Decadron Remdesivir stopped due to renal function Requiring 3 L nasal cannula, stable MAT protocol IS PT/OT UTI Stop Diflucan T2DM Steroid induced hyperglycemia Increase Levemir Add Novolog with meals Continue sliding scale DVT ppx: Lovenox Diagnosis/Problems Diagnosis/Problems (1) Acute respiratory failure Status: Acute Qualifiers: Respiratory failure complication: hypoxia Qualified Codes: J96.01 - Acute respiratory failure with hypoxia (2) COVID-19 Status: Acute (3) Insulin dependent diabetes mellitus Status: Acute (4) Debility Status: Acute EDMOND HERRERA MD Jun 19, 2021 13:22
--- NOTE | 2021-06-19 14:40 | Occupational Ther Daily Note ---
OT Current Status-Daily Note Subjective Pt laying in bed, agreeable to OT Tx. Mental Status/Objective Attachments: Oxygen ADL-Treatment Therapy Code Descriptions/Definitions Functional [place] Measure: 0=Not Assessed/NA 4=Minimal Assistance 1=Total Assistance 5=Supervision or Setup 2=Maximal Assistance 6=Modified [place] 3=Moderate Assistance 7=Complete IndependenceSCALE: Activities may be completed with or without assistive devices. 1-Lsvzwfzvrc-vgbqplh completes the activity by him/herself with no assistance from a helper. 5-Set-up or Clean-up Assistance-helper sets up or cleans up; patient completes activity. [place] assists only prior to or following the activity. 4-Supervision or Touching Assistance-helper provides verbal cues and/or touching/steadying and/or contact guard assistance as patient completes activity. Assistance may be provided throughout the activity or intermittently. 3-Partial/Moderate Assistance-helper does LESS THAN HALF the effort. [place] lifts, holds or supports trunk or limbs, but provides less than half the effort. 2-Substantial/Maximal Assistance-helper does MORE THAN HALF the effort. [place] lifts or holds trunk or limbs and provides more than half the effort. 5-Nfzhedcin-iuhgct does ALL the effort. Patient does none of the effort to complete the activity. Or, the assistance of 2 or more helpers is required for the patient to complete the activity. If activity was not attempted, code reason: 7-Patient Refused. 9-Not Applicable-not attempted and the patient did not perform the activity before the current illness, exacerbation or injury. 10-Not Attempted due to Environmental Limitations-(lack of equipment, weather restraints, etc.). 88-Not Attempted due to Medical Conditions or Safety Concerns. Eating (QC): 5 (set up assist) Oral Hygiene (QC): 3 (Pt able to remove and place dentures assist to clean) Shower/Bathe Self (QC): 1 (total assist per nursing.) Lower Body Dressing (QC): 1 Toileting Hygiene (QC): 1 Other Treatment Pt laying in bed, rolled side to side with min A for toileting to be complete. Total assist toileting. Pt able to remove dentures, OT then cleaned dentures, pt able to place back in his mouth. Pt positioned for feeding, then able to use mike nsils to eat strawberries. Post tx, pt in bed, call light in reach and all needs met. Education OT Patient Education: Correct positioning, Energy conservation, Modified ADL techniques, Progress toward Goal/Update tx plan, Purpose of tx/functional activities, Rehab process, Safety issues Teaching Recipient: Patient Teaching Methods: Discussion Response to Teaching: Verbalize Understanding OT Polisher Dial Goals Fpc Goals Time Frame: Jul 04, 2021 Eating (QC): 6 Oral Hygiene (QC): 6 Toileting Hygiene (QC): 5 Shower/Bathe Self (QC): 4 Upper Body Dressing (QC): 6 Lower Body Dressing (QC): 4 On/Off Footwear (QC): 4 Additional Goals: 1-Demonstrate ADL Tasks, 2-Verbalize Understanding, 3-ImproveStrength/Rafaela 1=Demonstrate adherence to instructed precautions during ADL tasks. 2=Patient will verbalize/demonstrate understanding of assistive devices/modifications for ADL. 3=Patient will improve strength/tolerance for activity to enable patient to perform ADL's. OT Education/Plan Problem List/Assessment Assessment: Decreased Activ Tolerance, Decreased UE Strength, Impaired Funct Balance, Impaired I ADL's, Impaired Self-Care Skills Discharge Recommendations Plan/Recommendations: Continue POC Treatment Plan/Plan of Care Patient would benefit from OT for education, treatment and training to promote independence in ADL's, mobility, safety and/or upper extremity function for ADL's. Plan of Care: ADL Retraining, Functional Mobility, UE Funct Exercise/Act Treatment Duration: Jul 04, 2021 Frequency: 5 times per week Estimated Hrs Per Day: .25 hour per day Rehab Potential: Guarded Time/GCodes Start Time: 14:05 Stop Time: 14:20 Total Time Billed (hr/min): 15 Billed Treatment Time 1, ADL GELACIO COX OT Jun 19, 2021 14:40
[2021-06-19 16:37] VITALS: BP 150/83
[2021-06-19] MEDS: ENOXAPARIN 30 MG/0.3 ML (LOVENOX) SYR SC SCH (17:05)
[2021-06-19 19:52] VITALS: BP 148/88
[2021-06-19 23:46] VITALS: BP 143/81
[2021-06-20 03:34] VITALS: BP 153/85
[2021-06-20] MEDS: inSUlin ASPART (NovoLOG) 1 UNIT/0.01 ML (CHARGE PER UNIT) SC SCH ×7 (05:22→21:50)
[2021-06-20 06:22] LABS: BASOPHILS % (AUTO) 0 % (0-10); EOSINOPHILS % (AUTO) 0 % (0-10); HEMATOCRIT 35 % (40-54); HEMOGLOBIN 11.6 g/dL (13.3-17.7); LYMPHOCYTES # (AUTO) 0.6 10^3/uL (1.0-4.0); LYMPHOCYTES % (AUTO) 9 % (12-44); MEAN CORPUSCULAR HEMOGLOBIN 31 pg (25-34); MEAN CORPUSCULAR HGB CONC 34 g/dL (32-36); MEAN CORPUSCULAR VOLUME 93 fL (80-99); MONOCYTES # (AUTO) 0.4 10^3/uL (0.0-1.0); MONOCYTES % (AUTO) 7 % (0-12); NEUTROPHILS # (AUTO) 5.3 10^3/uL (1.8-7.8); NEUTROPHILS % (AUTO) 83 % (42-75); PLATELET COUNT 354 10^3/uL (130-400); WHITE BLOOD COUNT 6.3 10^3/uL (4.3-11.0)
[2021-06-20 06:34] LABS: POTASSIUM 4.6 MMOL/L (3.6-5.0)
[2021-06-20 06:35] LABS: CALCIUM 8.8 MG/DL (8.5-10.1)
[2021-06-20 06:40] LABS: CREATININE SERUM 1.83 MG/DL (0.60-1.30)
[2021-06-20 08:00] VITALS: BP 140/70
[2021-06-20] MEDS: VITAMIN D3 25 MCG (1,000 UNITS) TABLET PO SCH (09:42)
[2021-06-20] MEDS: dexAMETHasone 6 MG TAB (DECADRON) PO SCH (09:42)
--- NOTE | 2021-06-20 10:48 | Occupational Ther Daily Note ---
OT Current Status-Daily Note Subjective Pt agreeable to OT tx, nurse indicates pt is out of isolation and about to move rooms. Mental Status/Objective Attachments: Oxygen ADL-Treatment Therapy Code Descriptions/Definitions Functional [place] Measure: 0=Not Assessed/NA 4=Minimal Assistance 1=Total Assistance 5=Supervision or Setup 2=Maximal Assistance 6=Modified [place] 3=Moderate Assistance 7=Complete IndependenceSCALE: Activities may be completed with or without assistive devices. 2-Qckoblqodt-xmsdrzg completes the activity by him/herself with no assistance from a helper. 5-Set-up or Clean-up Assistance-helper sets up or cleans up; patient completes activity. [place] assists only prior to or following the activity. 4-Supervision or Touching Assistance-helper provides verbal cues and/or touching/steadying and/or contact guard assistance as patient completes activity. Assistance may be provided throughout the activity or intermittently. 3-Partial/Moderate Assistance-helper does LESS THAN HALF the effort. [place] lifts, holds or supports trunk or limbs, but provides less than half the effort. 2-Substantial/Maximal Assistance-helper does MORE THAN HALF the effort. [place] lifts or holds trunk or limbs and provides more than half the effort. 8-Vjiaixfnq-vkuzjm does ALL the effort. Patient does none of the effort to comp lete the activity. Or, the assistance of 2 or more helpers is required for the patient to complete the activity. If activity was not attempted, code reason: 7-Patient Refused. 9-Not Applicable-not attempted and the patient did not perform the activity before the current illness, exacerbation or injury. 10-Not Attempted due to Environmental Limitations-(lack of equipment, weather restraints, etc.). 88-Not Attempted due to Medical Conditions or Safety Concerns. Eating (QC): 3 (assist to bring cup to mouth, pt took drink.) Oral Hygiene (QC): 3 (Assist to wash dentures, pt able to place/remove.) Lower Body Dressing (QC): 1 (assist at bed level to change brief.) Toileting Hygiene (QC): 1 (total assist due to incontinent of urine.) Other Treatment Pt in bed, rolled side to side with min A in order for hygiene to be performed and new brief donned, pt incontinent of urine. He transferred supine to sit EOB, max A (assist with BLEs and trunk). Pt transferred from EOB to recliner, assist x2. Pt taken to new room, assisted with positioning to comfort. Post tx, pt up in recliner, call light in reach and all needs met. Education OT Patient Education: Correct positioning, Energy conservation, Modified ADL techniques, Progress toward Goal/Update tx plan, Purpose of tx/functional activities, Rehab process Teaching Recipient: Patient Teaching Methods: Discussion Response to Teaching: Verbalize Understanding OT Fortune Teller Goals Fortune Teller Goals Time Frame: Jul 04, 2021 Eating (QC): 6 Oral Hygiene (QC): 6 Toileting Hygiene (QC): 5 Shower/Bathe Self (QC): 4 Upper Body Dressing (QC): 6 Lower Body Dressing (QC): 4 On/Off Footwear (QC): 4 Additional Goals: 1-Demonstrate ADL Tasks, 2-Verbalize Understanding, 3- ImproveStrength/Rafaela 1=Demonstrate adherence to instructed precautions during ADL tasks. 2=Patient will verbalize/demonstrate understanding of assistive devices/modifications for ADL. 3=Patient will improve strength/tolerance for activity to enable patient to perform ADL's. OT Education/Plan Problem List/Assessment Assessment: Decreased Activ Tolerance, Decreased UE Strength, Impaired Funct Balance, Impaired I ADL's, Impaired Self-Care Skills, Restricted Funct UE ROM Discharge Recommendations Plan/Recommendations: Continue POC Treatment Plan/Plan of Care Patient would benefit from OT for education, treatment and training to promote independence in ADL's, mobility, safety and/or upper extremity function for ADL's. Plan of Care: ADL Retraining, Functional Mobility, UE Funct Exercise/Act Treatment Duration: Jul 04, 2021 Frequency: 5 times per week Estimated Hrs Per Day: .25 hour per day Rehab Potential: Guarded Time/GCodes Start Time: 09:55 Stop Time: 10:10 Total Time Billed (hr/min): 15 Billed Treatment Time 1, ADL GELACIO COX OT Jun 20, 2021 10:48
--- NOTE | 2021-06-20 10:50 | Physical Therapy Daily Note ---
PT Daily Note-Current Subjective Patient in recliner pre tx, agrees to PT, has no complaints of pain. Patient seems more alert today. Patient has been moved to a room right by the nurse station. Appearance Patient in recliner post tx with nurse call, phone, tray, all needs met. Mental Status Patient Orientation: Person, Confused Attachments: Oxygen Transfers SCALE: Activities may be completed with or without assistive devices. 2-Psnmuqvnbh-dsaivsy completes the activity by him/herself with no assistance from a helper. 5-Set-up or Clean-up Assistance-helper sets up or cleans up; patient completes activity. [place] assists only prior to or following the activity. 4-Supervision or Touching Assistance-helper provides verbal cues and/or to uching/steadying and/or contact guard assistance as patient completes activity. Assistance may be provided throughout the activity or intermittently. 3-Partial/Moderate Assistance-helper does LESS THAN HALF the effort. [place] lifts, holds or supports trunk or limbs, but provides less than half the effort. 2-Substantial/Maximal Assistance-helper does MORE THAN HALF the effort. [place] lifts or holds trunk or limbs and provides more than half the effort. 3-Jhojlejmo-xwfcfs does ALL the effort. Patient does none of the effort to complete the activity. Or, the assistance of 2 or more helpers is required for the patient to complete the activity. If activity was not attempted, code reason: 7-Patient Refused. 9-Not Applicable-not attempted and the patient did not perform the activity before the current illness, exacerbation or injury. 10-Not Attempted due to Environmental Limitations-(lack of equipment, weather restraints, etc.). 88-Not Attempted due to Medical Conditions or Safety Concerns. Sit to Stand (QC): 3 Chair/Gjl-gh-Jjlxx Xfer(QC): 3 min assist, cues for hand placement Gait Training Distance: 10' Walk 10 feet (QC): 3 Gait Persons Needed: 1 Gait Assistive Device: FWW unsteady, retropulsive Exercises Seated Therapy Exercises: Ankle pumps, Long arc quads Seated Reps: 20 Treatments transfers, ambulation, LE strengthening Assessment Current Status: Fair Progress improved mobility from yesterday PT System Trainer Goals System Trainer Goals PT System Trainer Goals Time Frame: Jun 20, 2021 Roll Left & Right (QC): 6 Sit to Lying (QC): 5 Lying-Sitting on Side/Bed(QC): 5 Sit to Stand (QC): 3 Chair/Abp-if-Svxif Xfer(QC): 3 Walk 10 feet (QC): 3 Walk 50ft with 2 Turns (QC): 3 PT Plan Problem List Problem List: Activity Tolerance, Functional Strength, Safety, Balance, Gait, Transfer, Bed Mobility, ROM Treatment/Plan Treatment Plan: Continue Plan of Care Treatment Plan: Bed Mobility, Education, Functional Activity Rafaela, Functional Strength, Gait, Safety, Therapeutic Exercise, Transfers Treatment Duration: Jun 20, 2021 Frequency: 6 times per week Estimated Hrs Per Day: .25 hour per day Patient and/or Family Agrees t: Yes Safety Risks/Education Patient Education: Gait Training, Transfer Techniques, Correct Positioning, Safety Issues Teaching Recipient: Patient Teaching Methods: Demonstration, Discussion Response to Teaching: Reinforcement Needed Time/GCodes Time In: 1021 Time Out: 1031 Total Billed Treatment Time: 10 Total Billed Treatment 1 visit FA ROSENDO SCHAEFER PT Jun 20, 2021 10:50
[2021-06-20 12:00] VITALS: BP 140/70
--- NOTE | 2021-06-20 13:54 | Progress Note - Hospitalist ---
Subjective HPI/CC On Admission Date Seen by Provider: Jun 20, 2021 Time Seen by Provider: 10:40 Pt is a 76yoCM with a IDDMII, HLD who presented to the ER due to fever and weakness. He is unable to give me any history. He is awake but mostly nods his head and I am unsure if this is appropriate. All history is obtained from the records. Daughter reported tot he ER that he was weak for the past week and seen in the [place] ER 2 days ago and diagnosed with a UTI and DCed home with macrobid. He continued to fever and was brought here for reevaluation where he was found to be hypoxic and COVID+. He is unvaccinated per his daughters report. He is being admitted for further care. Subjective/Events-last exam He is sitting in his chair. He denies pain. He denies trouble breathing. He has no complaints. Objective Exam Vital Signs Vital Signs Date Time Temp Pulse Resp B/P (MAP) Pulse Ox O2 Delivery O2 Flow Rate FiO2 06/20/21 12:00 35.4 86 20 140/70 (93) 92 Nasal Cannula 3.00 Capillary Refill : Less Than 3 Seconds General Appearance: No Apparent Distress, Thin Respiratory: Lungs Clear, Normal Breath Sounds, No Respiratory Distress Cardiovascular: Regular Rate, Rhythm, No Edema, No Murmur Gastrointestinal: Normal Bowel Sounds, Non Tender, Soft Extremity: Normal Inspection, Non Tender, No Pedal Edema Neurologic/Psychiatric: Alert, Motor Weakness Skin: Normal Color, Warm/Dry Results/Procedures Lab Laboratory Tests 06/20/21 05:20 Patient resulted labs reviewed. Imaging: Reviewed Imaging Report Assessment/Plan Assessment and Plan Assess & Plan/Chief Complaint Acute respiratory failure due to COVID-19 Debility s/p Decadron Requiring 3 L nasal cannula, stable PT/OT T2DM Steroid induced hyperglycemia Continue Levemir Continue Novolog with meals Continue sliding scale DVT ppx: Lovenox UTI, resolved Diagnosis/Problems Diagnosis/Problems (1) Acute respiratory failure Status: Acute Qualifiers: Respiratory failure complication: hypoxia Qualified Codes: J96.01 - Acute respiratory failure with hypoxia (2) COVID-19 Status: Acute (3) Insulin dependent diabetes mellitus Status: Acute (4) Debility Status: Acute EDMOND HERRERA MD Jun 20, 2021 13:54
[2021-06-20 15:31] VITALS: BP 156/82
[2021-06-20] MEDS: ENOXAPARIN 30 MG/0.3 ML (LOVENOX) SYR SC SCH (16:44)
[2021-06-20 19:54] VITALS: BP 136/68
[2021-06-21] VITALS: BP 146/82
[2021-06-21 04:17] VITALS: BP 166/88
[2021-06-21 05:40] LABS: BASOPHILS % (AUTO) 0 % (0-10); EOSINOPHILS % (AUTO) 0 % (0-10); HEMATOCRIT 35 % (40-54); HEMOGLOBIN 11.9 g/dL (13.3-17.7); LYMPHOCYTES # (AUTO) 0.7 10^3/uL (1.0-4.0); LYMPHOCYTES % (AUTO) 11 % (12-44); MEAN CORPUSCULAR HEMOGLOBIN 31 pg (25-34); MEAN CORPUSCULAR HGB CONC 34 g/dL (32-36); MEAN CORPUSCULAR VOLUME 92 fL (80-99); MEAN PLATELET VOLUME 9.6 fL (9.0-12.2); MONOCYTES # (AUTO) 0.5 10^3/uL (0.0-1.0); MONOCYTES % (AUTO) 7 % (0-12); NEUTROPHILS # (AUTO) 5.3 10^3/uL (1.8-7.8); NEUTROPHILS % (AUTO) 81 % (42-75); PLATELET COUNT 362 10^3/uL (130-400); WHITE BLOOD COUNT 6.6 10^3/uL (4.3-11.0)
[2021-06-21] MEDS: inSUlin ASPART (NovoLOG) 1 UNIT/0.01 ML (CHARGE PER UNIT) SC SCH ×7 (05:41→20:45)
[2021-06-21 05:59] LABS: POTASSIUM 4.4 MMOL/L (3.6-5.0)
[2021-06-21 06:00] LABS: CALCIUM 8.9 MG/DL (8.5-10.1)
[2021-06-21 06:05] LABS: CREATININE SERUM 1.39 MG/DL (0.60-1.30)
[2021-06-21 07:00] VITALS: BP 162/91
[2021-06-21] MEDS: VITAMIN D3 25 MCG (1,000 UNITS) TABLET PO SCH (08:13)
[2021-06-21 11:18] VITALS: BP 132/72
--- NOTE | 2021-06-21 11:43 | Physical Therapy Progress Note ---
Therapy Progress Note Pt asleep in bed, unable to arouse fully. He requests return of PT at a later time, will check back later this date. 1 visit (723) JOSIAH SOLANO PT Jun 21, 2021 11:43
--- NOTE | 2021-06-21 12:00 | Physical Therapy Daily Note ---
PT Daily Note-Current Subjective Pt asleep laying Supine in bed. Pt is very drowsy and difficult to keep awake. Pt nods in agreement to tx. Pain Location: No Pain Reported Mental Status Patient Orientation: Person Awakens to saying his name but can't stay awake. Transfers SCALE: Activities may be completed with or without assistive devices. 7-Tylhwzdrkr-uvnytvh completes the activity by him/herself with no assistance from a helper. 5-Set-up or Clean-up Assistance-helper sets up or cleans up; patient completes activity. [place] assists only prior to or following the activity. 4-Supervision or Touching Assistance-helper provides verbal cues and/or touching/steadying and/or contact guard assistance as patient completes activity. Assistance may be provided throughout the activity or intermittently. 3-Partial/Moderate Assistance-helper does LESS THAN HALF the effort. [place] lifts, holds or supports trunk or limbs, but provides less than half the effort. 2-Substantial/Maximal Assistance-helper does MORE THAN HALF the effort. [place] lifts or holds trunk or limbs and provides more than half the effort. 8-Ljkezaujf-pntodo does ALL the effort. Patient does none of the effort to complete the activity. Or, the assistance of 2 or more helpers is required for the patient to complete the activity. If activity was not attempted, code reason: 7-Patient Refused. 9-Not Applicable-not attempted and the patient did not perform the activity before the current illness, exacerbation or injury. 10-Not Attempted due to Environmental Limitations-(lack of equipment, weather restraints, etc.). 88-Not Attempted due to Medical Conditions or Safety Concerns. Exercises Supine Ex: Ankle pumps, Quad Set, Straight leg raise, Hip abd/add Supine Reps: 15 (AAROM-PROM as pt can't sta awake) Treatments Pt completes Supine Ex when awake but continually has to be woken up as he easily falls asleep. Assessment Current Status: Fair Progress Pt cannot stay awake during tx. PT Correction Goals Cash Register Servicer Goals PT Cash Register Servicer Goals Time Frame: Jun 20, 2021 Roll Left & Right (QC): 6 Sit to Lying (QC): 5 Lying-Sitting on Side/Bed(QC): 5 Sit to Stand (QC): 3 Chair/Hvu-ml-Zijuh Xfer(QC): 3 Walk 10 feet (QC): 3 Walk 50ft with 2 Turns (QC): 3 PT Plan Problem List Problem List: Activity Tolerance, Functional Strength Treatment/Plan Treatment Plan: Continue Plan of Care Treatment Plan: Bed Mobility, Education, Functional Activity Rafaela, Functional Strength, Gait, Safety, Therapeutic Exercise, Transfers Treatment Duration: Jun 20, 2021 Frequency: 6 times per week Estimated Hrs Per Day: .25 hour per day Patient and/or Family Agrees t: Yes Time/GCodes Time In: 1138 Time Out: 1150 Total Billed Treatment Time: 12 Total Billed Treatment 1, EX (12m) CHRIS MCKOY LIGHT ARMORED VEHICLE OFFICER Jun 21, 2021 12:00
--- NOTE | 2021-06-21 14:25 | Progress Note - Hospitalist ---
Subjective HPI/CC On Admission Date Seen by Provider: Jun 21, 2021 Time Seen by Provider: 10:55 Pt is a 76yoCM with a IDDMII, HLD who presented to the ER due to fever and weakness. He is unable to give me any history. He is awake but mostly nods his head and I am unsure if this is appropriate. All history is obtained from the records. Daughter reported tot he ER that he was weak for the past week and seen in the [place] ER 2 days ago and diagnosed with a UTI and DCed home with macrobid. He continued to fever and was brought here for reevaluation where he was found to be hypoxic and COVID+. He is unvaccinated per his daughters report. He is being admitted for further care. Subjective/Events-last exam He is laying in bed. He has no complaints or concerns. He denies any pain. He denies any trouble breathing. Objective Exam Vital Signs Vital Signs Date Time Temp Pulse Resp B/P (MAP) Pulse Ox O2 Delivery O2 Flow Rate FiO2 06/21/21 11:18 36.8 97 20 132/72 (92) 93 Nasal Cannula 5.00 Capillary Refill : Less Than 3 Seconds General Appearance: No Apparent Distress, Chronically ill Respiratory: Lungs Clear, Normal Breath Sounds, No Respiratory Distress Cardiovascular: Regular Rate, Rhythm, No Edema, No Murmur Gastrointestinal: Normal Bowel Sounds, Non Tender, Soft Extremity: Normal Inspection, Non Tender, No Pedal Edema Neurologic/Psychiatric: Alert, Motor Weakness Skin: Normal Color, Warm/Dry Results/Procedures Lab Laboratory Tests 06/21/21 05:20 Patient resulted labs reviewed. Imaging: Reviewed Imaging Report Assessment/Plan Assessment and Plan Assess & Plan/Chief Complaint Acute respiratory failure due to COVID-19 Debility s/p Decadron Supplemental oxygen as needed PT/OT T2DM Steroid induced hyperglycemia Continue Levemir Continue Novolog with meals Continue sliding scale DVT ppx: Lovenox UTI, resolved Diagnosis/Problems Diagnosis/Problems (1) Acute respiratory failure Status: Acute Qualifiers: Respiratory failure complication: hypoxia Qualified Codes: J96.01 - Acute respiratory failure with hypoxia (2) COVID-19 Status: Acute (3) Insulin dependent diabetes mellitus Status: Acute (4) Debility Status: Acute EDMOND HERRERA MD Jun 21, 2021 14:25
[2021-06-21 16:03] VITALS: BP 121/67
[2021-06-21] MEDS: ENOXAPARIN 30 MG/0.3 ML (LOVENOX) SYR SC SCH (16:54)
[2021-06-21 19:56] VITALS: BP 127/77
[2021-06-22] VITALS: BP 116/72
[2021-06-22 04:17] VITALS: BP 130/80
[2021-06-22 04:46] LABS: BASOPHILS % (AUTO) 0 % (0-10); EOSINOPHILS # (AUTO) 0.1 10^3/uL (0.0-0.3); EOSINOPHILS % (AUTO) 1 % (0-10); HEMATOCRIT 37 % (40-54); HEMOGLOBIN 12.4 g/dL (13.3-17.7); LYMPHOCYTES # (AUTO) 1.4 10^3/uL (1.0-4.0); LYMPHOCYTES % (AUTO) 15 % (12-44); MEAN CORPUSCULAR HEMOGLOBIN 31 pg (25-34); MEAN CORPUSCULAR HGB CONC 33 g/dL (32-36); MEAN CORPUSCULAR VOLUME 92 fL (80-99); MEAN PLATELET VOLUME 9.8 fL (9.0-12.2); MONOCYTES # (AUTO) 0.6 10^3/uL (0.0-1.0); MONOCYTES % (AUTO) 6 % (0-12); NEUTROPHILS # (AUTO) 6.8 10^3/uL (1.8-7.8); NEUTROPHILS % (AUTO) 76 % (42-75); PLATELET COUNT 373 10^3/uL (130-400); WHITE BLOOD COUNT 8.9 10^3/uL (4.3-11.0)
[2021-06-22 04:56] LABS: POTASSIUM 4.7 MMOL/L (3.6-5.0)
[2021-06-22 04:57] LABS: CALCIUM 8.8 MG/DL (8.5-10.1)
[2021-06-22 05:01] LABS: CREATININE SERUM 1.67 MG/DL (0.60-1.30)
[2021-06-22] MEDS: inSUlin ASPART (NovoLOG) 1 UNIT/0.01 ML (CHARGE PER UNIT) SC SCH ×7 (05:35→20:28)
[2021-06-22 07:31] VITALS: BP 129/78
[2021-06-22] MEDS: VITAMIN D3 25 MCG (1,000 UNITS) TABLET PO SCH (08:09)
[2021-06-22 15:57] VITALS: BP 123/74
[2021-06-22] MEDS: ENOXAPARIN 30 MG/0.3 ML (LOVENOX) SYR SC SCH (17:44)
--- NOTE | 2021-06-22 19:26 | Progress Note - Hospitalist ---
Subjective HPI/CC On Admission Date Seen by Provider: Jun 22, 2021 Time Seen by Provider: 11:40 Pt is a 76yoCM with a IDDMII, HLD who presented to the ER due to fever and weakness. He is unable to give me any history. He is awake but mostly nods his head and I am unsure if this is appropriate. All history is obtained from the records. Daughter reported tot he ER that he was weak for the past week and seen in the [place] ER 2 days ago and diagnosed with a UTI and DCed home with macrobid. He continued to fever and was brought here for reevaluation where he was found to be hypoxic and COVID+. He is unvaccinated per his daughters report. He is being admitted for further care. Subjective/Events-last exam He is sleeping in his chair. He denies shortness of breath. He denies pain. He has no complaints. Objective Exam Vital Signs Vital Signs Date Time Temp Pulse Resp B/P (MAP) Pulse Ox O2 Delivery O2 Flow Rate FiO2 06/22/21 15:57 36.7 94 20 123/74 (90) 94 Nasal Cannula 5.00 Capillary Refill : Less Than 3 Seconds General Appearance: WD/WN, Chronically ill Respiratory: Lungs Clear, Normal Breath Sounds, No Respiratory Distress Cardiovascular: Regular Rate, Rhythm, No Edema, No Murmur Gastrointestinal: Normal Bowel Sounds, Non Tender, Soft Extremity: Normal Inspection, Non Tender, No Pedal Edema Neurologic/Psychiatric: Alert, Motor Weakness Skin: Normal Color, Warm/Dry Results/Procedures Lab Laboratory Tests 06/22/21 04:18 Patient resulted labs reviewed. Imaging: Reviewed Imaging Report Assessment/Plan Assessment and Plan Assess & Plan/Chief Complaint Acute respiratory failure due to COVID-19 Debility s/p Decadron Supplemental oxygen as needed PT/OT Likely discharge to [facility] bed this week T2DM Steroid induced hyperglycemia Continue Levemir Continue Novolog with meals Continue sliding scale DVT ppx: Lovenox UTI, resolved Diagnosis/Problems Diagnosis/Problems (1) Acute respiratory failure Status: Acute Qualifiers: Respiratory failure complication: hypoxia Qualified Codes: J96.01 - Acute respiratory failure with hypoxia (2) COVID-19 Status: Acute (3) Insulin dependent diabetes mellitus Status: Acute (4) Debility Status: Acute EDMOND HERRERA MD Jun 22, 2021 19:26
[2021-06-23 00:10] VITALS: BP 117/78
[2021-06-23 05:59] LABS: BASOPHILS % (AUTO) 0 % (0-10); EOSINOPHILS # (AUTO) 0.1 10^3/uL (0.0-0.3); EOSINOPHILS % (AUTO) 1 % (0-10); HEMATOCRIT 36 % (40-54); LYMPHOCYTES # (AUTO) 0.7 10^3/uL (1.0-4.0); LYMPHOCYTES % (AUTO) 7 % (12-44); MEAN CORPUSCULAR HEMOGLOBIN 31 pg (25-34); MEAN CORPUSCULAR HGB CONC 33 g/dL (32-36); MEAN CORPUSCULAR VOLUME 94 fL (80-99); MEAN PLATELET VOLUME 9.7 fL (9.0-12.2); MONOCYTES # (AUTO) 0.7 10^3/uL (0.0-1.0); MONOCYTES % (AUTO) 6 % (0-12); NEUTROPHILS # (AUTO) 9.5 10^3/uL (1.8-7.8); NEUTROPHILS % (AUTO) 85 % (42-75); PLATELET COUNT 374 10^3/uL (130-400); WHITE BLOOD COUNT 11.1 10^3/uL (4.3-11.0)
[2021-06-23 06:09] LABS: POTASSIUM 4.4 MMOL/L (3.6-5.0)
[2021-06-23 06:10] LABS: CALCIUM 8.9 MG/DL (8.5-10.1)
[2021-06-23 06:14] LABS: CREATININE SERUM 1.52 MG/DL (0.60-1.30)
[2021-06-23] MEDS: inSUlin ASPART (NovoLOG) 1 UNIT/0.01 ML (CHARGE PER UNIT) SC SCH ×7 (06:17→20:28)
[2021-06-23 08:00] VITALS: BP 133/80
[2021-06-23] MEDS: VITAMIN D3 25 MCG (1,000 UNITS) TABLET PO SCH (08:55)
--- NOTE | 2021-06-23 09:13 | Occupational Ther Daily Note ---
OT Current Status-Daily Note Subjective Pt in bed sleeping, awoken and agreeable to OT tx. Pt did not verbalize much during session, but communicated through small shakes/nods of head. Mental Status/Objective Patient Orientation: Person, Situation Attachments: Oxygen ADL-Treatment Therapy Code Descriptions/Definitions Functional [place] Measure: 0=Not Assessed/NA 4=Minimal Assistance 1=Total Assistance 5=Supervision or Setup 2=Maximal Assistance 6=Modified [place] 3=Moderate Assistance 7=Complete IndependenceSCALE: Activities may be completed with or without assistive devices. 8-Jrhyopboed-wbcxhvs completes the activity by him/herself with no assistance from a helper. 5-Set-up or Clean-up Assistance-helper sets up or cleans up; patient completes activity. [place] assists only prior to or following the activity. 4-Supervision or Touching Assistance-helper provides verbal cues and/or touching/steadying and/or contact guard assistance as patient completes activity. Assistance may be provided throughout the activity or intermittently. 3-Partial/Moderate Assistance-helper does LESS THAN HALF the effort. [place] lifts, holds or supports trunk or limbs, but provides less than half the effort. 2-Substantial/Maximal Assistance-helper does MORE THAN HALF the effort. [place] lifts or holds trunk or limbs and provides more than half the effort. 9-Hgdzadprd-idfwao does ALL the effort. Patient does none of the effort to complete the activity. Or, the assistance of 2 or more helpers is required for the patient to complete the activity. If activity was not attempted, code reason: 7-Patient Refused. 9-Not Applicable-not attempted and the patient did not perform the activity before the current illness, exacerbation or injury. 10-Not Attempted due to Environmental Limitations-(lack of equipment, weather restraints, etc.). 88-Not Attempted due to Medical Conditions or Safety Concerns. Eating (QC): 3 (Min A) Other Treatment Pt in bed, breakfast tray in front of him. OT elevated HOB so pt in more upright position. OT set up pt's meal, opening containers and cutting food. Pt did not reach for fork when placed on R side, OT assisted pt with getting first 2 bites of food to mouth. Pt then used RUE to reach for fork, and began feeding himself. Post tx, pt in bed, call light in reach and all needs met, eating breakfast. Education OT Patient Education: Correct positioning, Modified ADL techniques, Progress toward Goal/Update tx plan, Purpose of tx/functional activities, Rehab process Teaching Recipient: Patient Teaching Methods: Discussion Response to Teaching: Verbalize Understanding OT Health Claims Examiner Goals Health Claims Examiner Goals Time Frame: Jul 04, 2021 Eating (QC): 6 Oral Hygiene (QC): 6 Toileting Hygiene (QC): 5 Shower/Bathe Self (QC): 4 Upper Body Dressing (QC): 6 Lower Body Dressing (QC): 4 On/Off Footwear (QC): 4 Additional Goals: 1-Demonstrate ADL Tasks, 2-Verbalize Understanding, 3- ImproveStrength/Rafaela 1=Demonstrate adherence to instructed precautions during ADL tasks. 2=Patient will verbalize/demonstrate understanding of assistive devices/modifications for ADL. 3=Patient will improve strength/tolerance for activity to enable patient to perform ADL's. OT Education/Plan Problem List/Assessment Assessment: Decreased Activ Tolerance, Decreased UE Strength, Impaired I ADL's, Impaired Self-Care Skills Discharge Recommendations Plan/Recommendations: Continue POC Treatment Plan/Plan of Care Patient would benefit from OT for education, treatment and training to promote independence in ADL's, mobility, safety and/or upper extremity function for ADL's. Plan of Care: ADL Retraining, Functional Mobility, UE Funct Exercise/Act Treatment Duration: Jul 04, 2021 Frequency: 5 times per week Estimated Hrs Per Day: .25 hour per day Rehab Potential: Guarded Time/GCodes Start Time: 08:35 Stop Time: 08:45 Total Time Billed (hr/min): 10 Billed Treatment Time 1, ADL GELACIO COX OT Jun 23, 2021 09:13
--- NOTE | 2021-06-23 09:47 | Physical Therapy Daily Note ---
PT Daily Note-Current Subjective Patient sitting EOB pre tx, with the assist of 2 nurses who are having trouble getting him out of bed. Patient voices no complaints of pain, seems very fatigued/tired. Appearance Patient in recliner post tx with nurse call, phone, tray, all needs met, legs elevated. Mental Status Patient Orientation: Person, [place] Attachments: Oxygen Transfers SCALE: Activities may be completed with or without assistive devices. 8-Rekuybmeaj-yupfykc completes the activity by him/herself with no assistance from a helper. 5-Set-up or Clean-up Assistance-helper sets up or cleans up; patient completes activity. [place] assists only prior to or following the activity. 4-Supervision or Touching Assistance-helper provides verbal cues and/or touching/steadying and/or contact guard assistance as patient completes activity. Assistance may be provided throughout the activity or intermittently. 3-Partial/Moderate Assistance-helper does LESS THAN HALF the effort. [place] lift s, holds or supports trunk or limbs, but provides less than half the effort. 2-Substantial/Maximal Assistance-helper does MORE THAN HALF the effort. [place] lifts or holds trunk or limbs and provides more than half the effort. 3-Vglpvxdhn-nvgwwt does ALL the effort. Patient does none of the effort to complete the activity. Or, the assistance of 2 or more helpers is required for the patient to complete the activity. If activity was not attempted, code reason: 7-Patient Refused. 9-Not Applicable-not attempted and the patient did not perform the activity before the current illness, exacerbation or injury. 10-Not Attempted due to Environmental Limitations-(lack of equipment, weather restraints, etc.). 88-Not Attempted due to Medical Conditions or Safety Concerns. Sit to Stand (QC): 2 Chair/Nah-yw-Nkyij Xfer(QC): 2 Patient stands with max assist, nursing cleans bottom and replaces a pad, sits back down and then stand pivot with max assist to the recliner, patient resists transfer part of the way. Attempted to stand using a rolling walker at first but patient could not do it. Exercises attempted LE exercise but patient would not participate, performed LE PROM with dorsiflexion and knee extension x20 Treatments transfers, LE PROM Assessment Current Status: Poor Progress patient fatigued/tired, poor participation PT Assisted Goals Assisted Goals PT Assisted Goals Time Frame: Jun 20, 2021 Roll Left & Right (QC): 6 Sit to Lying (QC): 5 Lying-Sitting on Side/Bed(QC): 5 Sit to Stand (QC): 3 Chair/Jfw-yl-Lwymm Xfer(QC): 3 Walk 10 feet (QC): 3 Walk 50ft with 2 Turns (QC): 3 PT Plan Problem List Problem List: Activity Tolerance, Functional Strength, Safety, Balance, Gait, Transfer, Bed Mobility, ROM Treatment/Plan Treatment Plan: Continue Plan of Care Treatment Plan: Bed Mobility, Education, Functional Activity Rafaela, Functional Strength, Gait, Safety, Therapeutic Exercise, Transfers Treatment Duration: Jun 20, 2021 Frequency: 6 times per week Estimated Hrs Per Day: .25 hour per day Patient and/or Family Agrees t: Yes Safety Risks/Education Patient Education: Transfer Techniques, Correct Positioning, Safety Issues Teaching Recipient: Patient Teaching Methods: Demonstration, Discussion Response to Teaching: Reinforcement Needed Time/GCodes Time In: 909 Time Out: 919 Total Billed Treatment Time: 10 Total Billed Treatment 1 visit FA ROSENDO SCHAEFER PT Jun 23, 2021 09:47
--- NOTE | 2021-06-23 12:28 | Progress Note - Hospitalist ---
Subjective HPI/CC On Admission Date Seen by Provider: Jun 23, 2021 Time Seen by Provider: 12:27 Pt is a 76yoCM with a IDDMII, HLD who presented to the ER due to fever and weakness. He is unable to give me any history. He is awake but mostly nods his head and I am unsure if this is appropriate. All history is obtained from the records. Daughter reported tot he ER that he was weak for the past week and seen in the [place] ER 2 days ago and diagnosed with a UTI and DCed home with macrobid. He continued to fever and was brought here for reevaluation where he was found to be hypoxic and COVID+. He is unvaccinated per his daughters report. He is being admitted for further care. Subjective/Events-last exam Pt reports doing well. NO complaints. Hopeful for DC tomorrow to [place]. Objective Exam Vital Signs Vital Signs Date Time Temp Pulse Resp B/P (MAP) Pulse Ox O2 Delivery O2 Flow Rate FiO2 06/23/21 11:00 95 Nasal Cannula 5.00 06/23/21 08:00 36.6 106 18 133/80 (97) Capillary Refill : Less Than 3 Seconds General Appearance: No Apparent Distress, Chronically ill, Thin Respiratory: Lungs Clear, No Accessory Muscle Use, Other (on 5lpm) Cardiovascular: Regular Rate, Rhythm, No Murmur Neurologic/Psychiatric: Alert, Oriented x3 Results/Procedures Lab Laboratory Tests 06/23/21 05:35 Patient resulted labs reviewed. Imaging: Reviewed Imaging Report Assessment/Plan Assessment and Plan Assess & Plan/Chief Complaint Acute respiratory failure due to COVID-19 Debility s/p Decadron Supplemental oxygen as needed PT/OT Likely discharge to [facility] vs SNF T2DM Steroid induced hyperglycemia Continue Levemir Continue Novolog with meals Continue sliding scale DVT ppx: Lovenox UTI, resolved Diagnosis/Problems Diagnosis/Problems (1) Acute respiratory failure Status: Acute Qualifiers: Respiratory failure complication: hypoxia Qualified Codes: J96.01 - Acute respiratory failure with hypoxia (2) HLD (hyperlipidemia) (3) Insulin dependent diabetes mellitus Status: Acute (4) COVID-19 Status: Acute CHICHI AGUILA MD Jun 23, 2021 12:28
[2021-06-23 15:42] VITALS: BP 123/70
[2021-06-23] MEDS: ENOXAPARIN 40 MG/0.4 ML (LOVENOX) SYR SC SCH (17:08)
[2021-06-24] VITALS: BP 122/74
[2021-06-24 05:37] LABS: BASOPHILS % (AUTO) 0 % (0-10); EOSINOPHILS # (AUTO) 0.2 10^3/uL (0.0-0.3); EOSINOPHILS % (AUTO) 2 % (0-10); HEMATOCRIT 34 % (40-54); HEMOGLOBIN 11.1 g/dL (13.3-17.7); LYMPHOCYTES # (AUTO) 1.2 10^3/uL (1.0-4.0); LYMPHOCYTES % (AUTO) 13 % (12-44); MEAN CORPUSCULAR HEMOGLOBIN 31 pg (25-34); MEAN CORPUSCULAR HGB CONC 33 g/dL (32-36); MEAN CORPUSCULAR VOLUME 94 fL (80-99); MEAN PLATELET VOLUME 9.6 fL (9.0-12.2); MONOCYTES # (AUTO) 0.6 10^3/uL (0.0-1.0); MONOCYTES % (AUTO) 7 % (0-12); NEUTROPHILS # (AUTO) 6.7 10^3/uL (1.8-7.8); NEUTROPHILS % (AUTO) 77 % (42-75); PLATELET COUNT 333 10^3/uL (130-400); WHITE BLOOD COUNT 8.7 10^3/uL (4.3-11.0)
[2021-06-24 05:47] LABS: POTASSIUM 4.7 MMOL/L (3.6-5.0)
[2021-06-24 05:48] LABS: CALCIUM 8.4 MG/DL (8.5-10.1)
[2021-06-24 05:53] LABS: CREATININE SERUM 1.49 MG/DL (0.60-1.30)
[2021-06-24] MEDS: inSUlin ASPART (NovoLOG) 1 UNIT/0.01 ML (CHARGE PER UNIT) SC SCH ×7 (06:00→20:45)
[2021-06-24 08:00] VITALS: BP 110/66
[2021-06-24] MEDS: VITAMIN D3 25 MCG (1,000 UNITS) TABLET PO SCH (09:31)
--- NOTE | 2021-06-24 10:15 | Physical Therapy Daily Note ---
PT Daily Note-Current Subjective Patient in bed pre tx, agrees to PT, has no complaints of pain. Patient doesn't look very well and states he is very tired, he has a course cough. Appearance Patient in recliner post tx with nurse call, phone, tray, legs elevated. Mental Status Patient Orientation: Person, Confused Attachments: Oxygen Transfers SCALE: Activities may be completed with or without assistive devices. 2-Zcmhpyxslp-ygcents completes the activity by him/herself with no assistance from a helper. 5-Set-up or Clean-up Assistance-helper sets up or cleans up; patient completes activity. [place] assists only prior to or following the activity. 4-Supervision or Touching Assistance-helper provides verbal cues and/or touching/steadying and/or contact guard assistance as patient completes activity. Assistance may be provided throughout the activity or intermittently. 3-Partial/Moderate Assistance-helper does LESS THAN HALF the effort. [place] lifts, holds or supports trunk or limbs, but provides less than half the effort. 2-Substantial/Maximal Assistance-helper does MORE THAN HALF the effort. [place] lifts or holds trunk or limbs and provides more than half the effort. 0-Rwvegsrcc-dyrtgv does ALL the effort. Patient does none of the effort to complete the activity. Or, the assistance of 2 or more helpers is required for the patient to complete the activity. If activity was not attempted, code reason: 7-Patient Refused. 9-Not Applicable-not attempted and the patient did not perform the activity before the current illness, exacerbation or injury. 10-Not Attempted due to Environmental Limitations-(lack of equipment, weather restraints, etc.). 88-Not Attempted due to Medical Conditions or Safety Concerns. Roll Left & Right (QC): 3 Lying to Sitting/Side of Bed(Q: 3 Sit to Stand (QC): 3 mod assist for supine to sit and sit to stand, once standing he can take a couple of steps to carter the recliner but seems to get stuck after that and lunges toward chair and needed to be guided to the recliner via therapist. Exercises Seated Therapy Exercises: Ankle pumps, Long arc quads Seated Reps: 20 Treatments bed mobility and transfers, LE strengthening Assessment Current Status: Poor Progress better performance than yesterday but overall has poor functional mobility PT Design Leader Goals [facility] Goals PT [facility] Goals Time Frame: Jun 20, 2021 Roll Left & Right (QC): 6 Sit to Lying (QC): 5 Lying-Sitting on Side/Bed(QC): 5 Sit to Stand (QC): 3 Chair/Tfo-tb-Kmlpe Xfer(QC): 3 Walk 10 feet (QC): 3 Walk 50ft with 2 Turns (QC): 3 PT Plan Problem List Problem List: Activity Tolerance, Functional Strength, Safety, Balance, Gait, Transfer, Bed Mobility, ROM Treatment/Plan Treatment Plan: Continue Plan of Care Treatment Plan: Bed Mobility, Education, Functional Activity Rafaela, Functional Strength, Gait, Safety, Therapeutic Exercise, Transfers Treatment Duration: Jun 20, 2021 Frequency: 6 times per week Estimated Hrs Per Day: .25 hour per day Patient and/or Family Agrees t: Yes Safety Risks/Education Patient Education: Transfer Techniques, Correct Positioning, Safety Issues Teaching Recipient: Patient Teaching Methods: Demonstration, Discussion Response to Teaching: Reinforcement Needed Time/GCodes Time In: 0948 Time Out: 09 Total Billed Treatment Time: 10 Total Billed Treatment 1 visit FA ROSENDO SCHAEFER PT Jun 24, 2021 10:15
--- NOTE | 2021-06-24 12:39 | Progress Note - Hospitalist ---
Subjective HPI/CC On Admission Date Seen by Provider: Jun 24, 2021 Time Seen by Provider: 12:37 Pt is a 76yoCM with a IDDMII, HLD who presented to the ER due to fever and weakness. He is unable to give me any history. He is awake but mostly nods his head and I am unsure if this is appropriate. All history is obtained from the records. Daughter reported tot he ER that he was weak for the past week and seen in the [place] ER 2 days ago and diagnosed with a UTI and DCed home with macrobid. He continued to fever and was brought here for reevaluation where he was found to be hypoxic and COVID+. He is unvaccinated per his daughters report. He is being admitted for further care. Subjective/Events-last exam Pt reports doing well. Had just had his hair washed and was shaved. States he feels better. Objective Exam Vital Signs Vital Signs Date Time Temp Pulse Resp B/P (MAP) Pulse Ox O2 Delivery O2 Flow Rate FiO2 06/24/21 08:42 Nasal Cannula 4.00 06/24/21 08:00 37.2 93 20 110/66 (81) 93 Capillary Refill : Less Than 3 Seconds General Appearance: No Apparent Distress, Chronically ill, Thin Respiratory: Lungs Clear, No Respiratory Distress Cardiovascular: Regular Rate, Rhythm, No Murmur Gastrointestinal: Normal Bowel Sounds, Non Tender, Soft Neurologic/Psychiatric: Alert, Oriented x3 Results/Procedures Lab Laboratory Tests 06/24/21 05:20 Patient resulted labs reviewed. Imaging: Reviewed Imaging Report Assessment/Plan Assessment and Plan Assess & Plan/Chief Complaint Acute respiratory failure due to COVID-19 Debility s/p Decadron Supplemental oxygen as needed PT/OT [facility] emergency services dispatcher consulted to assistance with discharge plan T2DM Steroid induced hyperglycemia Continue Levemir Continue Novolog with meals Continue sliding scale DVT ppx: Lovenox UTI, resolved Diagnosis/Problems Diagnosis/Problems (1) Acute respiratory failure Status: Acute Qualifiers: Respiratory failure complication: hypoxia Qualified Codes: J96.01 - Acute respiratory failure with hypoxia (2) HLD (hyperlipidemia) (3) Insulin dependent diabetes mellitus Status: Acute (4) COVID-19 Status: Acute CHICHI AGUILA MD Jun 24, 2021 12:39
--- NOTE | 2021-06-24 14:30 | Occupational Ther Daily Note ---
OT Current Status-Daily Note Subjective Pt laying in bed, agreeable to OT tx. Pt slightly nodded/shaked his head to communicate with OT, spoke very few words. ADL-Treatment Therapy Code Descriptions/Definitions Functional [place] Measure: 0=Not Assessed/NA 4=Minimal Assistance 1=Total Assistance 5=Supervision or Setup 2=Maximal Assistance 6=Modified [place] 3=Moderate Assistance 7=Complete IndependenceSCALE: Activities may be completed with or without assistive devices. 3-[place]-rneljfw completes the activity by him/herself with no assistance from a helper. 5-Set-up or Clean-up Assistance-helper sets up or cleans up; patient completes activity. [place] assists only prior to or following the activity. 4-Supervision or Touching Assistance-helper provides verbal cues and/or touching/steadying and/or contact guard assistance as patient completes activi ty. Assistance may be provided throughout the activity or intermittently. 3-Partial/Moderate Assistance-helper does LESS THAN HALF the effort. [place] lifts, holds or supports trunk or limbs, but provides less than half the effort. 2-Substantial/Maximal Assistance-helper does MORE THAN HALF the effort. [place] lifts or holds trunk or limbs and provides more than half the effort. 7-Jtnigavcb-vgjuji does ALL the effort. Patient does none of the effort to complete the activity. Or, the assistance of 2 or more helpers is required for the patient to complete the activity. If activity was not attempted, code reason: 7-Patient Refused. 9-Not Applicable-not attempted and the patient did not perform the activity before the current illness, exacerbation or injury. 10-Not Attempted due to Environmental Limitations-(lack of equipment, weather restraints, etc.). 88-Not Attempted due to Medical Conditions or Safety Concerns. Oral Hygiene (QC): 2 (Pt able to use his tongue in order to remove lower dentures. Assist to remove uppers and assist with cleaning. ) Other Treatment Pt laying in bed, agreeable to removing dentures in order to brush them and clean his mouth. Pt able to use his tongue in order to remove lower dentures, required assistance removing uppers. Pt handed brush but did not move his arms in order to brush his gums, assist provided by OT. OT brushed pt's dentures. Pt does not want dentures back in his mouth at this time, OT left dentures in cup by sink. Pt handed washcloth to wash his face, pt did not attempt to move UEs in order to wash face, OT dependently washed his face for him. Post tx, pt in bed, call light in reach and all needs met. Education OT Patient Education: Correct positioning, Modified ADL techniques, Progress toward Goal/Update tx plan, Purpose of tx/functional activities, Rehab process Teaching Recipient: Patient Teaching Methods: Discussion Response to Teaching: Verbalize Understanding OT Detention Goals Detention Goals Time Frame: Jul 04, 2021 Eating (QC): 6 Oral Hygiene (QC): 6 Toileting Hygiene (QC): 5 Shower/Bathe Self (QC): 4 Upper Body Dressing (QC): 6 Lower Body Dressing (QC): 4 On/Off Footwear (QC): 4 Additional Goals: 1-Demonstrate ADL Tasks, 2-Verbalize Understanding, 3- ImproveStrength/Rafaela 1=Demonstrate adherence to instructed precautions during ADL tasks. 2=Patient will verbalize/demonstrate understanding of assistive devices/modifications for ADL. 3=Patient will improve strength/tolerance for activity to enable patient to perform ADL's. OT Education/Plan Problem List/Assessment Assessment: Decreased Activ Tolerance, Decreased Safety Aware, Decreased UE Strength, Impaired Coordination, Impaired Funct Balance, Impaired I ADL's, Impaired Self-Care Skills, Restricted Funct UE ROM Discharge Recommendations Plan/Recommendations: Continue POC Treatment Plan/Plan of Care Patient would benefit from OT for education, treatment and training to promote independence in ADL's, mobility, safety and/or upper extremity function for ADL's. Plan of Care: ADL Retraining, Functional Mobility, UE Funct Exercise/Act Treatment Duration: Jul 04, 2021 Frequency: 5 times per week Estimated Hrs Per Day: .25 hour per day Rehab Potential: Guarded Time/GCodes Start Time: 14:15 Stop Time: 14:26 Total Time Billed (hr/min): 11 Billed Treatment Time 1, ADL GELACIO COX OT Jun 24, 2021 14:30
[2021-06-24 15:30] VITALS: BP 126/79
[2021-06-24] MEDS: ENOXAPARIN 40 MG/0.4 ML (LOVENOX) SYR SC SCH (17:24)
[2021-06-25 00:23] VITALS: BP 137/77
[2021-06-25] MEDS: inSUlin ASPART (NovoLOG) 1 UNIT/0.01 ML (CHARGE PER UNIT) SC SCH ×7 (06:14→21:44)
[2021-06-25 07:36] VITALS: BP 115/70
[2021-06-25] MEDS: VITAMIN D3 25 MCG (1,000 UNITS) TABLET PO SCH (08:08)
--- NOTE | 2021-06-25 08:45 | Physical Therapy Daily Note ---
PT Daily Note-Current Subjective Patient in bed pre tx, agrees to PT, shakes his head no when asked if he has any pain. Appearance Patient in recliner post tx with nurse call, phone, tray, legs elevated. Mental Status Patient Orientation: Person, Unable to Assess, [place] Attachments: Oxygen Transfers SCALE: Activities may be completed with or without assistive devices. 3-Mldqpugnby-pgnnvhp completes the activity by him/herself with no assistance from a helper. 5-Set-up or Clean-up Assistance-helper sets up or cleans up; patient completes activity. [place] assists only prior to or following the activity. 4-Supervision or Touching Assistance-helper provides verbal cues and/or touching/steadying and/or contact guard assistance as patient completes activity. Assistance may be provided throughout the activity or intermittently. 3-Partial/Moderate Assistance-helper does LESS THAN HALF the effort. [place] lifts, holds or supports trunk or limbs, but provides less than half the effort. 2-Substantial/Maximal Assistance-helper does MORE THAN HALF the effort. [place] lifts or holds trunk or limbs and provides more than half the effort. 3-Dcagpejfz-pudsbo does ALL the effort. Patient does none of the effort to complete the activity. Or, the assistance of 2 or more helpers is required for the patient to complete the activity. If activity was not attempted, code reason: 7-Patient Refused. 9-Not Applicable-not attempted and the patient did not perform the activity before the current illness, exacerbation or injury. 10-Not Attempted due to Environmental Limitations-(lack of equipment, weather restraints, etc.). 88-Not Attempted due to Medical Conditions or Safety Concerns. Roll Left & Right (QC): 2 Lying to Sitting/Side of Bed(Q: 2 Sit to Stand (QC): 1 Chair/Gxw-pm-Kyokd Xfer(QC): 1 Treatments bed mobility and transfers Assessment Current Status: Poor Progress Patient didn't participate much if any with standing and transfer. After transferring to the recliner attempted LE exercises with patient and he would not participate. PT Assisted Goals Assisted Goals PT Assisted Goals Time Frame: Jun 20, 2021 Roll Left & Right (QC): 6 Sit to Lying (QC): 5 Lying-Sitting on Side/Bed(QC): 5 Sit to Stand (QC): 3 Chair/Tmm-uy-Rgtwy Xfer(QC): 3 Walk 10 feet (QC): 3 Walk 50ft with 2 Turns (QC): 3 PT Plan Problem List Problem List: Activity Tolerance, Functional Strength, Safety, Balance, Gait, Transfer, Bed Mobility, ROM Treatment/Plan Treatment Plan: Continue Plan of Care Treatment Plan: Bed Mobility, Education, Functional Activity Rafaela, Functional Strength, Gait, Safety, Therapeutic Exercise, Transfers Treatment Duration: Jun 20, 2021 Frequency: 6 times per week Estimated Hrs Per Day: .25 hour per day Patient and/or Family Agrees t: Yes Safety Risks/Education Patient Education: Transfer Techniques, Correct Positioning, Safety Issues Teaching Recipient: Patient Teaching Methods: Demonstration, Discussion Response to Teaching: Reinforcement Needed Time/GCodes Time In: 823 Time Out: 834 Total Billed Treatment Time: 11 Total Billed Treatment 1 visit FA 11' ROSENDO DOWNS PT Jun 25, 2021 08:45
--- NOTE | 2021-06-25 09:17 | Progress Note - Hospitalist ---
Subjective HPI/CC On Admission Date Seen by Provider: Jun 25, 2021 Time Seen by Provider: 09:16 Pt is a 76yoCM with a IDDMII, HLD who presented to the ER due to fever and weakness. He is unable to give me any history. He is awake but mostly nods his head and I am unsure if this is appropriate. All history is obtained from the records. Daughter reported tot he ER that he was weak for the past week and seen in the [place] ER 2 days ago and diagnosed with a UTI and DCed home with macrobid. He continued to fever and was brought here for reevaluation where he was found to be hypoxic and COVID+. He is unvaccinated per his daughters report. He is being admitted for further care. Subjective/Events-last exam Pt reports doing ok. No complaints. Sleeping when I entered the room. Awakes for a few questions and then back to bed. Objective Exam Vital Signs Vital Signs Date Time Temp Pulse Resp B/P (MAP) Pulse Ox O2 Delivery O2 Flow Rate FiO2 06/25/21 08:03 Nasal Cannula 4.00 06/25/21 07:36 36.8 96 20 115/70 (85) 95 Capillary Refill : Less Than 3 Seconds General Appearance: No Apparent Distress, Thin Respiratory: Lungs Clear, No Respiratory Distress Cardiovascular: Regular Rate, Rhythm, No Murmur Neurologic/Psychiatric: Alert, Oriented x3 Results/Procedures Lab Patient resulted labs reviewed. Imaging: Reviewed Imaging Report Assessment/Plan Assessment and Plan Assess & Plan/Chief Complaint Acute respiratory failure due to COVID-19 Debility s/p Decadron Supplemental oxygen as needed PT/OT [facility] Bed declined, URF declined environmental services supervisor consulted to assistance with discharge plan- will need SNF placement T2DM Steroid induced hyperglycemia Continue Levemir Continue Novolog with meals Continue sliding scale DVT ppx: Lovenox UTI, resolved Diagnosis/Problems Diagnosis/Problems (1) Acute respiratory failure Status: Acute Qualifiers: Respiratory failure complication: hypoxia Qualified Codes: J96.01 - Acute respiratory failure with hypoxia (2) HLD (hyperlipidemia) (3) Insulin dependent diabetes mellitus Status: Acute (4) COVID-19 Status: Acute CHICHI AGUILA MD Jun 25, 2021 09:17
--- NOTE | 2021-06-25 10:55 | Occupational Ther Daily Note ---
OT Current Status-Daily Note Subjective Pt up in recliner, agreeable to OT tx. Pt did not talk much during session, speaking very few words. Mental Status/Objective Attachments: Oxygen ADL-Treatment Therapy Code Descriptions/Definitions Functional [place] Measure: 0=Not Assessed/NA 4=Minimal Assistance 1=Total Assistance 5=Supervision or Setup 2=Maximal Assistance 6=Modified [place] 3=Moderate Assistance 7=Complete IndependenceSCALE: Activities may be completed with or without assistive devices. 8-Hunvyixvwj-xsixais completes the activity by him/herself with no assistance from a helper. 5-Set-up or Clean-up Assistance-helper sets up or cleans up; patient completes activity. [place] assists only prior to or following the activity. 4-Supervision or Touching Assistance-helper provides verbal cues and/or touching/steadying and/or contact guard assistance as patient completes activity. Assistance may be provided throughout the activity or intermittently. 3-Partial/Moderate Assistance-helper does LESS THAN HALF the effort. [place] lifts, holds or supports trunk or limbs, but provides less than half the effort. 2-Substantial/Maximal Assistance-helper does MORE THAN HALF the effort. [place] lifts or holds trunk or limbs and provides more than half the effort. 3-Hjerihzsy-kujxhg does ALL the effort. Patient does none of the effort to complete the activity. Or, the assistance of 2 or more helpers is required for the patient to complete the activity. If activity was not attempted, code reason: 7-Patient Refused. 9-Not Applicable-not attempted and the patient did not perform the activity before the current illness, exacerbation or injury. 10-Not Attempted due to Environmental Limitations-(lack of equipment, weather restraints, etc.). 88-Not Attempted due to Medical Conditions or Safety Concerns. Upper Body Dressing (QC): 1 Other Treatment Pt up in recliner, agreeable to OT tx. Pt declines UE exercises, OT encouraged pt to complete exercises in order to increase strength but he continues to shake his head "no". Pt agreeable to changing hospital gown as it had food on it from breakfast. Gown changed with total assist. OT handed pt a washcloth, he brought it up and wiped his nose, but did not wash any other parts as instructed. OT assisted with washing his face, max A overall. OT combed pt's hair, total assist. Post tx, pt up in recliner, call light in reach and all needs met. Education OT Patient Education: Correct positioning, Energy conservation, Modified ADL techniques, Progress toward Goal/Update tx plan, Purpose of tx/functional activities, Rehab process Teaching Recipient: Patient Teaching Methods: Discussion Response to Teaching: Unable to Return Demonstration, Reinforcement Needed OT Custodial Goals Data Analytics Specialist Goals Time Frame: Jul 04, 2021 Eating (QC): 6 Oral Hygiene (QC): 6 Toileting Hygiene (QC): 5 Shower/Bathe Self (QC): 4 Upper Body Dressing (QC): 6 Lower Body Dressing (QC): 4 On/Off Footwear (QC): 4 Additional Goals: 1-Demonstrate ADL Tasks, 2-Verbalize Understanding, 3- ImproveStrength/Rafaela 1=Demonstrate adherence to instructed precautions during ADL tasks. 2=Patient will verbalize/demonstrate understanding of assistive devices/modifications for ADL. 3=Patient will improve strength/tolerance for activity to enable patient to perform ADL's. OT Education/Plan Problem List/Assessment Assessment: Decreased Activ Tolerance, Decreased Safety Aware, Decreased UE Strength, Impaired Cognition, Impaired Coordination, Impaired Funct Balance, Impaired I ADL's, Impaired Self-Care Skills, Restricted Funct UE ROM Discharge Recommendations Plan/Recommendations: Continue POC Treatment Plan/Plan of Care Patient would benefit from OT for education, treatment and training to promote independence in ADL's, mobility, safety and/or upper extremity function for ADL's. Plan of Care: ADL Retraining, Functional Mobility, UE Funct Exercise/Act Treatment Duration: Jul 04, 2021 Frequency: 5 times per week Estimated Hrs Per Day: .25 hour per day Rehab Potential: Guarded Time/GCodes Start Time: 10:20 Stop Time: 10:30 Total Time Billed (hr/min): 10 Billed Treatment Time 1, ADL GELACIO COX OT Jun 25, 2021 10:55
[2021-06-25 15:30] VITALS: BP 120/78
[2021-06-25] MEDS: ENOXAPARIN 40 MG/0.4 ML (LOVENOX) SYR SC SCH (16:59)
[2021-06-25 23:54] VITALS: BP 140/69
[2021-06-26] MEDS: inSUlin ASPART (NovoLOG) 1 UNIT/0.01 ML (CHARGE PER UNIT) SC SCH ×3 (06:06→10:18)
[2021-06-26 07:27] VITALS: BP 116/65
[2021-06-26] MEDS: VITAMIN D3 25 MCG (1,000 UNITS) TABLET PO SCH (08:15)
--- NOTE | 2021-06-26 10:30 | Discharge Summary ---
Diagnosis/Chief Complaint Date of Admission Jun 12, 2021 at 16:10 Date of Discharge Admission Diagnosis Acute hypoxic respiratory failure due to COVID19 Primary Care Discharge Diagnosis (1) Acute respiratory failure Status: Acute (2) COVID-19 Status: Acute (3) Insulin dependent diabetes mellitus Status: Acute (4) Debility Status: Acute Discharge Summary Discharge Physical Exam Allergies: Uncoded Allergies: NKMA (Adverse Reaction, Intermediate, 12/11/14) Vitals & I&Os Vital Signs Date Time Temp Pulse Resp B/P (MAP) Pulse Ox O2 Delivery O2 Flow Rate FiO2 06/26/21 12:28 36.8 93 18 116/65 99 Nasal Cannula 4.00 General Appearance: No Apparent Distress, Chronically ill, Thin Respiratory: Lungs Clear, No Respiratory Distress Cardiovascular: Regular Rate, Rhythm, No Murmur Neurologic/Psychiatric: Alert, Oriented x3 Hospital Course Patient was admitted to the hospital secondary to acute hypoxic respiratory failure due to COVID-19. He was treated with Decadron but was unable to complete course of remdesivir due to chronic kidney disease. He did well but suffered from debility. So he was discharged to a long term for continued skilled therapy. Labs (last 24 hrs) Microbiology 06/13/21 MRSA Screen - Final, Complete MRSA not isolated 06/12/21 Blood Culture - Final, Complete No growth 06/12/21 Urine Culture - Final, Complete Yeast species Patient resulted labs reviewed. Pending Labs Imaging: Reviewed Imaging Report Discussion & Recommendations Discharge Planning: >30 minutes discharge planning Discharge Home Medications: Active Scripts Active Novolog (Insulin Aspart) 100 Unit/1 Ml Susp 0 Unit SC ACHS Reported Vitamin C (Ascorbate Calcium) 500 Mg Tablet 500 Mg PO Vitamin D3 (Cholecalciferol (Vitamin D3)) 25 Mcg Capsule 25 Mcg PO DAILY Cranberry 400 Mg Capsule 400 Mg PO DAILY Instructions to patient/family Please see electronic discharge instructions given to patient. Problem Qualifiers (1) Acute respiratory failure: Respiratory failure complication: hypoxia Qualified Codes: J96.01 - Acute respiratory failure with hypoxia CHICHI AGUILA MD Jun 26, 2021 10:30
[2021-06-26] MEDS ORDERED: INSU100V16 SC (10:32)
--- NOTE | 2021-06-26 10:33 | Discharge Inst-Skilled Nursing ---
Discharge Inst-Skilled NF Chief Complaint Pt is a 76yoCM with a IDDMII, HLD who presented to the ER due to fever and weakness. He is unable to give me any history. He is awake but mostly nods his head and I am unsure if this is appropriate. All history is obtained from the records. Daughter reported tot he ER that he was weak for the past week and seen in the [place] ER 2 days ago and diagnosed with a UTI and DCed home with macrobid. He continued to fever and was brought here for reevaluation where he was found to be hypoxic and COVID+. He is unvaccinated per his daughters report. He is being admitted for further care. Consult/Follow Up/Orders Follow Up Appt.: 1 week with your PCP Skilled NF [facility]) I certify that SNF services are required to be given on an inpatient basis because of the above named patient's need for fpc care on a continuing basis for the conditions(s) for which he/she was receiving inpatient hospital services prior to his/her transfer to the SNF. Fpc Facility Order: Nursing Services, [employer]-Evaluate & Treat, Physical Therapy-Evaluate & Treat Oxygen Delivery Method: Nasal Cannula Oxygen Flow Rate L/min (Range): 5 Daily Activity as Tolerated: Yes Resuscitation Status: Full Code New & Resume Previous Orders Chichi Palmer Jun 26, 2021 10:32 CHICHI PALMER MD Jun 26, 2021 10:33
[2021-06-26 12:28] VITALS: BP 116/65
== END 2021-06-26 12:26 | DRG 177 ==
LOC: EDUNIT# 14:16 → ER 14:19 → CSD 16:10 → ICU 18:34 → 4TH 06-13 16:22
PROVIDERS: ADMIT Family Medicine; ATTEND Family Medicine
PROC: XW033E5 Introduction of Remdesivir Anti-infective into Peripheral Vein, Percutaneous Approach, New Technology Group 5 (ICD-10-PCS; principal; 2021-06-12)
DX: U07.1 COVID-19 (principal); J96.01 Acute respiratory failure with hypoxia; B37.49 Other urogenital candidiasis; N17.9 Acute kidney failure, unspecified; H91.90 Unspecified hearing loss, unspecified ear; H54.7 Unspecified visual loss; E78.5 Hyperlipidemia, unspecified; E11.65 Type 2 diabetes mellitus with hyperglycemia; T38.0X5A Adverse effect of glucocorticoids and synthetic analogues, initial encounter; Z87.891 Personal history of nicotine dependence; Z79.4 Long term (current) use of insulin; Z79.82 Long term (current) use of aspirin; Z79.899 Other long term (current) drug therapy
CPT/HCPCS: 36415; 51702; 71045; 76770; 80048; 80053; 81000; 82805; 82947; 83036; 83605; 83735; 84100; 85025; 85610; 85730; 87040; 87081; 87088; 87636; 94760; 94761; 96374